=== PATIENT | female | born 1950 | race African-American/Black ===

== ENCOUNTER 2016-11-16 20:30 | Inpatient (IN) | payer MEDICARE, MEDICAID ==
[~2016-11-16] VITALS: Ht 175.3 cm; Wt 60.3 kg
[~2016-11-16 20:30] MED LIST: ADVIL200 M2 ORAL; AMOXICILLIN500 MG ORAL; ATENOLOL100 MG ORAL; CYMBALTA20 MG ORAL; HYDROCODON-ACE1 EAC4 ORAL; IBUPROFEN600 MG ORAL; LOMOTIL TABLET1 EACH ORAL; NEURONTIN100 MG ORAL; Naloxone 1mg/ml 2ml IVP ONE; Naloxone 2 MG in D5W 500ml 498 ML IV SCH; PENICILLIN V P500 MG PO; PERIDEX 0.12% O16 OZ MT; TRAMADOL HCL50 MG ORAL; TRICOR54 MG ORAL; TYLENOL325 MG ORAL; WELLBUTRIN75 MG ORAL
[2016-11-16 21:32] LABS: ABG ALLEN TEST POSITIVE; ABG BASE EXCESS -0.2; ABG PCO2 34.2 mmHg (35.0-45.0)
[2016-11-16 21:56] VITALS: BP 150/98
[2016-11-16 22:11] LABS: MEAN CORPUSCULAR HEMOGLOBIN 32.4 PG (27.0-31.0); MEAN CORPUSCULAR HGB CONC 32.2 G/DL (32.0-36.0); MEAN CORPUSCULAR VOLUME 101 FL (80-99); MEAN PLATELET VOLUME 5.6 FL (6.5-10.1); PLATELET COUNT 253 K/UL (150-450); RED BLOOD COUNT 3.79 M/UL (4.20-5.40); RED CELL DISTRIBUTION WIDTH 13.3 % (11.6-14.8); WHITE BLOOD COUNT 5.1 K/UL (4.8-10.8)
[2016-11-16 22:13] LABS: APPEARANCE,URINE CLEAR; KETONES,URINE NEGATIVE (NEGATIVE); LEUKOCYTE ESTERASE ,URINE 1+ (NEGATIVE); NITRITE,URINE NEGATIVE (NEGATIVE); PH,URINE 7 (4.5-8.0); PROTEIN,URINE 2+ (NEGATIVE); UROBILINOGEN,URINE NORMAL MG/DL (0.0-1.0)
[2016-11-16 22:27] LABS: RBC,URINE 0-2 /HPF (0 - 2)
[2016-11-16 22:28] LABS: SQUAMOUS EPITHELIAL CELL,UR OCCASIONAL /LPF (NONE/OCC); WBC,URINE 0-2 /HPF (0 - 2)
--- NOTE | 2016-11-16 22:29 | Emergency Room Report ---
History of Present Illness General Chief Complaint: Overdose Source: EMS Present Illness HPI The patient was brought in by EMS. She allegedly took excessive amounts of narcotics at the assisted living where she is. She was unresponsive and had a respiratory rate of 6. They gave 2 milligrams of Narcan in the field and she woke up. She was still lethargic. Her vital signs otherwise were stable her Accu-Chek was normal in the field. She has a history of narcotic abuse in the past. She denies suicidal or homicidal ideation. She has been seen in the ED for sciatica, facial pain and tooth pain. Usually she would receive an Rx of tramadol. Apparently she obtains other opiates from the others living with her. All other history unavailable as patient not answering. Allergies: Coded Allergies: SULFA (SULFONAMIDE ANTIBIOTICS) (Verified Allergy, Mild, Hives, 04/20/13) Patient History Limited by: medical condition Past Medical History: see triage record, old chart reviewed Social History: Reports: alcohol use, drug use Social History Narrative [facility] Reviewed Nursing Documentation: PMH: Agreed, PSxH: Agreed Nursing Documentation-PMH Hx Hypertension: Yes Hx Cancer: Yes - ovarian cancer Hx Gastrointestinal Problems: Yes - Gerd DIVITERCULITIS Hx Seizures: Yes Review of Systems All Other Systems: limited Physical Exam Vital Signs Date Time Temp Pulse Resp B/P Pulse Ox O2 Delivery O2 Flow Rate FiO2 11/16/16 20:16 98.4 114 18 145/99 98 11/16/16 21:56 Room Air Sp02 EP Interpretation: reviewed, normal General Appearance: well appearing, no apparent distress, lethargic, thin Head: normocephalic, atraumatic Eyes: bilateral eye PERRL - 3 mm, bilateral eye other ENT: moist mucus membranes Neck: supple Respiratory: chest non-tender, lungs clear, normal breath sounds Cardiovascular #1: normal peripheral pulses, no edema, tachycardia Cardiovascular #2: 2+ radial (L) Gastrointestinal: normal inspection, non tender, no mass, non-distended, abnormal bowel sounds - decreased Musculoskeletal: back normal, normal range of motion, non-tender, no calf tenderness Neurologic: other - lethargic with some choreoform movements Psychiatric: depressed affect Skin: normal inspection, other - cool Medical Decision Making Diagnostic Impression: Primary Impression: Opiate overdose Qualified Codes: T40.604A - Poisoning by unspecified narcotics, undetermined, initial encounter Additional Impressions: Polypharmacy abuse Persistent lethargy ER Course The patient presents after the Narcan for respiratory arrest after narcotic excess. Evaluation needs to be undertaken to make sure she doesn't have non- cardiac pulmonary edema or an ND. She also needs observation. Laboratory will be obtained. The patient is ill and needs observation to make sure she doesn't return to the comatose state. Nacan and narcan drip ordered. Labs significant for + opiates and alcohol. CXR - no CHF. The patient is still lethargic however she does not require further dosing of Narcan at this time. She'll be admitted to the hospital for observation. Patient admitted Dr. Parker. Laboratory Tests Test 11/16/16 20:28 11/16/16 21:31 11/16/16 21:51 11/16/16 22:44 Arterial Blood pH 7.450 (7.350-7.450) Arterial Blood Partial Pressure CO2 34.2 mmHg (35.0-45.0) L Arterial Blood Partial Pressure O2 81.8 mmHg (75.0-100.0) Arterial Blood HCO3 23.2 mmol/L (22.0-26.0) Arterial Blood Oxygen Saturation 95.0 % (92.0-98.0) Arterial Blood Base Excess -0.2 Jono Test Positive White Blood Count 5.1 K/UL (4.8-10.8) Red Blood Count 3.79 M/UL (4.20-5.40) L Hemoglobin 12.3 G/DL (12.0-16.0) Hematocrit 38.2 % (37.0-47.0) Mean Corpuscular Volume 101 FL (80-99) H Mean Corpuscular Hemoglobin 32.4 PG (27.0-31.0) H Mean Corpuscular Hemoglobin Concent 32.2 G/DL (32.0-36.0) Red Cell Distribution Width 13.3 % (11.6-14.8) Platelet Count 253 K/UL (150-450) Mean Platelet Volume 5.6 FL (6.5-10.1) L Neutrophils (%) (Auto) % (45.0-75.0) Lymphocytes (%) (Auto) % (20.0-45.0) Monocytes (%) (Auto) % (1.0-10.0) Eosinophils (%) (Auto) % (0.0-3.0) Basophils (%) (Auto) % (0.0-2.0) Differential Total Cells Counted 100 Neutrophils % (Manual) 26 % (45-75) L Lymphocytes % (Manual) 60 % (20-45) H Monocytes % (Manual) 10 % (1-10) Eosinophils % (Manual) 3 % (0-3) Basophils % (Manual) 1 % (0-2) Band Neutrophils 0 % (0-8) Platelet Estimate Adequate Platelet Morphology Normal Polychromasia 1+ Macrocytosis 2+ Urine Color Pale yellow Urine Appearance Clear Urine pH 7 (4.5-8.0) Urine Specific [place] 1.005 (1.005-1.035) Urine Protein 2+ (NEGATIVE) H Urine Glucose (UA) Negative (NEGATIVE) Urine Ketones Negative (NEGATIVE) Urine Occult Blood Negative (NEGATIVE) Urine Nitrite Negative (NEGATIVE) Urine Bilirubin Negative (NEGATIVE) Urine Urobilinogen Normal MG/DL (0.0-1.0) Urine Leukocyte Esterase 1+ (NEGATIVE) H Urine RBC 0-2 /HPF (0 - 2) Urine WBC 0-2 /HPF (0 - 2) Urine Squamous Epithelial Cells Occasional /LPF Urine Bacteria None /HPF (NONE) Urine Opiates Screen Positive (NEGATIVE) H Urine Barbiturates Screen Negative (NEGATIVE) Phencyclidine (PCP) Screen Negative (NEGATIVE) Urine Amphetamines Screen Negative (NEGATIVE) Urine Benzodiazepines Screen Negative (NEGATIVE) Urine Cocaine Screen Negative (NEGATIVE) Urine Marijuana (THC) Screen Negative (NEGATIVE) Sodium Level 137 mEQ/L (135-145) Potassium Level 4.2 mEQ/L (3.4-4.9) Chloride Level 96 mEQ/L (98-107) L Carbon Dioxide Level 24 mEQ/L (20-30) Anion Gap 17 (5-15) H Blood Urea Nitrogen 12 mg/dL (7-23) Creatinine 0.7 mg/dL (0.5-0.9) Estimate Glomerular Filtration Rate > 60 mL/min (>60) Glucose Level 81 mg/dL (74-106) Calcium Level 8.4 mg/dL (8.6-10.2) L Total Bilirubin < 0.2 mg/dL (0.0-1.2) Aspartate Amino Transferase (AST) 26 U/L (5-40) Alanine Aminotransferase (ALT) 13 U/L (3-33) Alkaline Phosphatase 89 U/L (35-104) Total Creatine Kinase 62 U/L (26-140) Troponin I < 0.30 ng/mL (<=0.30) Total Protein 6.7 g/dL (6.6-8.7) Albumin 3.8 g/dL (3.5-5.2) Globulin 2.9 g/dL Albumin/Globulin Ratio 1.3 (1.0-2.7) Salicylates Level < 1 mg/dL (10-30) L Acetaminophen Level < 10 ug/mL (10-30) L Serum Alcohol 125 mg/dL EKG Diagnostic Results Rate: tachycardiac ST Segments: no acute changes Rhythm Strip Diag. Results Rhythm: no PVC's, no ectopy, other - ST Chest X-Ray Diagnostic Results EP Interpretation: Yes Findings: no consolidation, no effusion, no pneumothorax, other - Nodule R base Number of Views: 1 Last Vital Signs Date Time Temp Pulse Resp B/P Pulse Ox O2 Delivery O2 Flow Rate FiO2 11/17/16 01:52 97.7 94 20 154/107 95 Room Air Status: improved Disposition: ADMITTED INPATIENT Condition: Serious Tucker Bennett M.D. Nov 16, 2016 22:29
[2016-11-16 23:18] LABS: BASOPHILS % (MANUAL) 1 % (0-2); EOSINOPHILS % (MANUAL) 3 % (0-3); LYMPHOCYTES % (MANUAL) 60 % (20-45); NEUTROPHILS % (MANUAL) 26 % (45-75); TOTAL CELLS COUNTED 100
[2016-11-16 23:19] LABS: TROPONIN I < 0.30 ng/mL (<=0.30)
[2016-11-16 23:19] LABS: BAND NEUTROPHILS % (MANUAL) 0 % (0-8); MACROCYTES 2+; PLATELET ESTIMATE ADEQUATE; POLYCHROMASIA 1+
[2016-11-16 23:20] LABS: PLATELET MORPHOLOGY NORMAL
[2016-11-16 23:24] LABS: ACETAMINOPHEN < 10 ug/mL (10-30); ALANINE AMINOTRANSFERASE 13 U/L (3-33); ALBUMIN/GLOBULIN RATIO 1.3 (1.0-2.7); ALCOHOL 125 mg/dL; ANION GAP 17 (5-15); ASPARTATE AMINO TRANSFERASE 26 U/L (5-40); CALCIUM 8.4 mg/dL (8.6-10.2); CARBON DIOXIDE 24 mEQ/L (20-30); CHLORIDE 96 mEQ/L (98-107); CREATININE 0.7 mg/dL (0.5-0.9); GLOMERULAR FILTRATION RATE > 60 mL/min (>60); HEMOLYSIS 77; POTASSIUM 4.2 mEQ/L (3.4-4.9); SODIUM 137 mEQ/L (135-145); TOTAL PROTEIN 6.7 g/dL (6.6-8.7)
[2016-11-16 23:48] VITALS: BP 142/98
[2016-11-17] VITALS (7 sets, daily range): BP systolic 98–154; BP diastolic 49–107
[2016-11-17] MEDS ORDERED: MAGNESIUM OXID400 M1 ORAL (00:54)
[2016-11-17] MEDS ORDERED: LOPRESSOR HCT1 EAC3 ORAL (00:54)
[2016-11-17] MEDS ORDERED: ALLOPURINOL100 M1 ORAL (00:54)
[2016-11-17] MEDS ORDERED: VITAMIN D250000 UNI1 ORAL (00:54)
[2016-11-17] MEDS ORDERED: MULTIVITAMINS1 EAC2 ORAL (00:54)
[2016-11-17] MEDS ORDERED: GABAPENTIN400 MG ORAL (00:54)
[2016-11-17] MEDS ORDERED: FERROUS SULFAT325 MG ORAL (00:54)
[2016-11-17] MEDS ORDERED: COMPAZINE10 MG ORAL (00:54)
[2016-11-17] MEDS ORDERED: PROTONIX40 MG ORAL (00:54)
[2016-11-17] MEDS ORDERED: DULCOLAX10 MG RC (00:54)
[2016-11-17] MEDS ORDERED: QUETIAPINE FUMA50 MG ORAL (00:54)
[2016-11-17] MEDS ORDERED: AZELASTINE137 MCG/0. NS (00:54)
[2016-11-17] MEDS ORDERED: RESTORIL7.5 MG ORAL (00:54)
[2016-11-17] MEDS ORDERED: BUMETANIDE2 MG ORAL (00:54)
[2016-11-17] MEDS ORDERED: LIDODERM700 M1 TOPIC (00:54)
[2016-11-17] MEDS ORDERED: PROCHLORPERAZIN10 MG PO (04:38)
[2016-11-17] MEDS ORDERED: PANTOPRAZOLE SO40 MG ORAL (04:38)
[2016-11-17] MEDS ORDERED: METOPROLOL TART25 MG ORAL (04:38)
[2016-11-17] MEDS ORDERED: GABAPENTIN100 MG ORAL (04:38)
[2016-11-17] MEDS ORDERED: DULOXETINE HCL60 MG PO (04:38)
[2016-11-17] MEDS ORDERED: NEURONTIN400 MG ORAL (04:38)
[2016-11-17] MEDS ORDERED: Prochlorperazine 10mg tab ORAL PRN (08:30)
[2016-11-17 08:55] LABS: BASOPHILS % (AUTO) 1.9 % (0.0-2.0); EOSINOPHILS % (AUTO) 2.2 % (0.0-3.0); LYMPHOCYTES % (AUTO) 32.5 % (20.0-45.0); MEAN CORPUSCULAR HEMOGLOBIN 32.1 PG (27.0-31.0); MEAN CORPUSCULAR HGB CONC 32.5 G/DL (32.0-36.0); MEAN CORPUSCULAR VOLUME 99 FL (80-99); MEAN PLATELET VOLUME 5.9 FL (6.5-10.1); MONOCYTES % (AUTO) 12.2 % (1.0-10.0); NEUTROPHILS % (AUTO) 51.2 % (45.0-75.0); PLATELET COUNT 258 K/UL (150-450); RED BLOOD COUNT 3.82 M/UL (4.20-5.40); RED CELL DISTRIBUTION WIDTH 13.7 % (11.6-14.8); WHITE BLOOD COUNT 5.6 K/UL (4.8-10.8)
[2016-11-17] MEDS ORDERED: Pneumococcal Vaccine 25mcg/0.5ml IM ONE (09:00)
[2016-11-17] MEDS: Allopurinol 100mg Tab ORAL SCH ×2 (09:18→18:22)
[2016-11-17] MEDS: DULoxetine 30mg cap ORAL SCH ×2 (09:18→18:18)
[2016-11-17] MEDS: Thiamine 100mg tab ORAL SCH (09:22)
[2016-11-17] MEDS: Metoprolol 25mg tab ORAL SCH ×2 (09:22→20:28)
[2016-11-17] MEDS: Heparin 5000 units/ml inj SUBQ SCH ×2 (09:23→20:29)
[2016-11-17 09:31] LABS: ALANINE AMINOTRANSFERASE 12 U/L (3-33); ALBUMIN/GLOBULIN RATIO 1.3 (1.0-2.7); ANION GAP 17 (5-15); ASPARTATE AMINO TRANSFERASE 21 U/L (5-40); CALCIUM 9.2 mg/dL (8.6-10.2); CARBON DIOXIDE 23 mEQ/L (20-30); CHLORIDE 101 mEQ/L (98-107); CREATININE 0.7 mg/dL (0.5-0.9); GLOMERULAR FILTRATION RATE > 60 mL/min (>60); HEMOLYSIS 6; MAGNESIUM 1.4 mg/dL (1.7-2.5); PHOSPHORUS 4.8 mg/dL (2.5-4.8); POTASSIUM 3.9 mEQ/L (3.4-4.9); SODIUM 141 mEQ/L (135-145); TOTAL PROTEIN 7.1 g/dL (6.6-8.7)
[2016-11-17] MEDS: Bumetanide 1mg tab ORAL SCH (10:30)
--- NOTE | 2016-11-17 15:21 | Consultation ---
History of Present Illness General Date patient seen: Nov 17, 2016 Chief Complaint: Overdose Present Illness HPI 66 year old female with hx of chronic pain, ovarian cancer, assisted living resident, was brought in by EMS because she was unresponsive and had a respiratory rate of 6. EMS gave her 2 milligrams of Narcan in the field and she woke up. She allegedly took excessive amounts of narcotics at the assisted living. She was still lethargic upon arrival to ED. Her vital signs otherwise were stable her Accu-Chek was normal in the field. She has a history of narcotic abuse in the past. She denies suicidal or homicidal ideation. She has been admitted for narcotic overdose. Allergies: Coded Allergies: SULFA (SULFONAMIDE ANTIBIOTICS) (Verified Allergy, Mild, Hives, 04/20/13) Uncoded Allergies: FISH (Allergy, Severe, Swelling of throat, lips and hives, 11/17/16) Medication History Scheduled Allopurinol* (Allopurinol*), 100 MG ORAL DAILY, (Reported) Amoxicillin* (Amoxil*), 500 MG ORAL EVERY 8 HOURS Atenolol* (Tenormin*), 200 MG ORAL DAILY, (Reported) Bumetanide* (Bumetanide*), 2 MG ORAL DAILY, (Reported) Duloxetine HCl (Duloxetine HCl), 60 MG PO BID, (Reported) Ergocalciferol (Vitamin D2)* (Vitamin D*), 50,000 UNIT ORAL ONCE A WEEK, ( Reported) Fenofibrate (Fenofibrate), MG ORAL DAILY, (Reported) Ferrous Sulfate* (Ferrous Sulfate*), 325 MG ORAL TWICE A DAY, (Reported) Gabapentin* (Gabapentin*), 100 MG ORAL THREE TIMES A DAY, (Reported) Gabapentin* (Neurontin*), 400 MG ORAL THREE TIMES A DAY, (Reported) Ibuprofen* (Advil*), Unknown Dose ORAL Q6H, (Reported) Ibuprofen* (Motrin*), 600 MG ORAL THREE TIMES A DAY Magnesium Oxide (Magnesium Oxide), 400 MG ORAL DAILY, (Reported) Metoprolol Tartrate* (Metoprolol Tartrate*), 25 MG ORAL EVERY 12 HOURS, ( Reported) Multivitamins* (Multivitamins*), 1 TAB ORAL DAILY, (Reported) Pantoprazole* (Pantoprazole*), 40 MG ORAL EVERY 12 HOURS, (Reported) Penicillin V Potassium* (Penvk*), 500 MG PO Q6H Quetiapine Fumarate* (Quetiapine Fumarate*), 25 MG ORAL DAILY, (Reported) Temazepam* (Restoril*), 7.5 MG ORAL BEDTIME, (Reported) Tramadol Hcl* (Ultram*), 50 MG ORAL Q6H Scheduled PRN Acetaminophen (Tylenol), Unknown Dose ORAL Q6H PRN for For Pain, (Reported) Prochlorperazine Maleate (Prochlorperazine Maleate), 10 MG PO BID PRN for Nausea & Vomiting, (Reported) Tramadol Hcl* (Ultram*), 50 MG ORAL Q6H PRN for For Pain Tramadol Hcl* (Ultram*), 50 MG ORAL Q6H PRN for For Pain Tramadol Hcl* (Ultram*), 50 MG ORAL Q6H PRN for For Pain Miscellaneous Medications Azelastine Hcl (Azelastine Hcl), 137 MCG NS, (Reported) Bisacodyl (Dulcolax), 10 MG RC, (Reported) Lidocaine (Lidoderm), 1 PATCH TOPIC, (Reported) Discontinued Medications Duloxetine (Cymbalta), Unknown Dose ORAL DAILY, (Reported) Discontinued Reason: Prescription changed Metoprolol/Hydrochlorothiazide (Lopressor Hct 50-25 Tablet), 1 TAB ORAL DAILY, ( Reported) Discontinued Reason: Prescription changed Prochlorperazine (Compazine*), 10 MG ORAL Q6H PRN for Nausea & Vomiting, ( Reported) Discontinued Reason: Prescription changed Patient History Healthcare decision maker pt alert Resuscitation status Full Code Advanced Directive on File Past Medical/Surgical History Past Medical/Surgical History: (1) opiate dependence (2) Drug-seeking behavior (3) Chronic pain Review of Systems All Other Systems: negative except mentioned in HPI Physical Exam General Appearance: WD/WN Lines, tubes and drains: peripheral HEENT: normocephalic, atraumatic Neck: non-tender, supple Respiratory/Chest: chest wall non-tender, lungs clear Cardiovascular/Chest: normal peripheral pulses, regular rhythm Abdomen: normal bowel sounds, non tender Extremities: normal range of motion, non-tender Skin Exam: normal pigmentation Last 24 Hour Vital Signs Date Time Temp Pulse Resp B/P Pulse Ox O2 Delivery O2 Flow Rate FiO2 11/17/16 13:50 96.5 11/17/16 13:50 96.5 11/17/16 11:38 96.5 97 18 151/96 100 Room Air 11/17/16 09:22 111 145/93 11/17/16 07:58 98.1 111 18 145/93 100 Room Air 11/17/16 07:54 106 11/17/16 04:30 98.1 103 20 98/49 96 Room Air 11/17/16 04:00 105 11/17/16 01:52 97.7 94 20 154/107 95 Room Air 11/17/16 01:48 98.3 100 23 150/96 99 Room Air 11/17/16 01:03 100 23 150/96 99 Room Air 11/16/16 23:48 98.3 102 18 142/98 97 Room Air 11/16/16 21:56 98.6 105 17 150/98 98 Room Air 11/16/16 21:55 105 17 11/16/16 20:16 98.4 114 18 145/99 98 Intake and Output 11/16/16 11/17/16 19:00 07:00 Intake Total 1000 ml Output Total 1125 ml Balance -125 ml Intake IV Total 1000 ml Output Urine Total 1125 ml # Voids 1 Laboratory Tests Test 11/16/16 20:28 11/16/16 21:31 11/16/16 21:51 11/16/16 22:44 Arterial Blood pH 7.450 (7.350-7.450) Arterial Blood Partial Pressure CO2 34.2 mmHg (35.0-45.0) L Arterial Blood Partial Pressure O2 81.8 mmHg (75.0-100.0) Arterial Blood HCO3 23.2 mmol/L (22.0-26.0) Arterial Blood Oxygen Saturation 95.0 % (92.0-98.0) Arterial Blood Base Excess -0.2 Jono Test Positive White Blood Count 5.1 K/UL (4.8-10.8) Red Blood Count 3.79 M/UL (4.20-5.40) L Hemoglobin 12.3 G/DL (12.0-16.0) Hematocrit 38.2 % (37.0-47.0) Mean Corpuscular Volume 101 FL (80-99) H Mean Corpuscular Hemoglobin 32.4 PG (27.0-31.0) H Mean Corpuscular Hemoglobin Concent 32.2 G/DL (32.0-36.0) Red Cell Distribution Width 13.3 % (11.6-14.8) Platelet Count 253 K/UL (150-450) Mean Platelet Volume 5.6 FL (6.5-10.1) L Neutrophils (%) (Auto) % (45.0-75.0) Lymphocytes (%) (Auto) % (20.0-45.0) Monocytes (%) (Auto) % (1.0-10.0) Eosinophils (%) (Auto) % (0.0-3.0) Basophils (%) (Auto) % (0.0-2.0) Differential Total Cells Counted 100 Neutrophils % (Manual) 26 % (45-75) L Lymphocytes % (Manual) 60 % (20-45) H Monocytes % (Manual) 10 % (1-10) Eosinophils % (Manual) 3 % (0-3) Basophils % (Manual) 1 % (0-2) Band Neutrophils 0 % (0-8) Platelet Estimate Adequate Platelet Morphology Normal Polychromasia 1+ Macrocytosis 2+ Urine Color Pale yellow Urine Appearance Clear Urine pH 7 (4.5-8.0) Urine Specific [place] 1.005 (1.005-1.035) Urine Protein 2+ (NEGATIVE) H Urine Glucose (UA) Negative (NEGATIVE) Urine Ketones Negative (NEGATIVE) Urine Occult Blood Negative (NEGATIVE) Urine Nitrite Negative (NEGATIVE) Urine Bilirubin Negative (NEGATIVE) Urine Urobilinogen Normal MG/DL (0.0-1.0) Urine Leukocyte Esterase 1+ (NEGATIVE) H Urine RBC 0-2 /HPF (0 - 2) Urine WBC 0-2 /HPF (0 - 2) Urine Squamous Epithelial Cells Occasional /LPF Urine Bacteria None /HPF (NONE) Urine Opiates Screen Positive (NEGATIVE) H Urine Barbiturates Screen Negative (NEGATIVE) Phencyclidine (PCP) Screen Negative (NEGATIVE) Urine Amphetamines Screen Negative (NEGATIVE) Urine Benzodiazepines Screen Negative (NEGATIVE) Urine Cocaine Screen Negative (NEGATIVE) Urine Marijuana (THC) Screen Negative (NEGATIVE) Sodium Level 137 mEQ/L (135-145) Potassium Level 4.2 mEQ/L (3.4-4.9) Chloride Level 96 mEQ/L (98-107) L Carbon Dioxide Level 24 mEQ/L (20-30) Anion Gap 17 (5-15) H Blood Urea Nitrogen 12 mg/dL (7-23) Creatinine 0.7 mg/dL (0.5-0.9) Estimat Glomerular Filtration Rate > 60 mL/min (>60) Glucose Level 81 mg/dL (74-106) Calcium Level 8.4 mg/dL (8.6-10.2) L Total Bilirubin < 0.2 mg/dL (0.0-1.2) Aspartate Amino Transf (AST/SGOT) 26 U/L (5-40) Alanine Aminotransferase (ALT/SGPT) 13 U/L (3-33) Alkaline Phosphatase 89 U/L (35-104) Total Creatine Kinase 62 U/L (26-140) Troponin I < 0.30 ng/mL (<=0.30) Total Protein 6.7 g/dL (6.6-8.7) Albumin 3.8 g/dL (3.5-5.2) Globulin 2.9 g/dL Albumin/Globulin Ratio 1.3 (1.0-2.7) Salicylates Level < 1 mg/dL (10-30) L Acetaminophen Level < 10 ug/mL (10-30) L Serum Alcohol 125 mg/dL Test 11/17/16 08:40 White Blood Count 5.6 K/UL (4.8-10.8) Red Blood Count 3.82 M/UL (4.20-5.40) L Hemoglobin 12.2 G/DL (12.0-16.0) Hematocrit 37.6 % (37.0-47.0) Mean Corpuscular Volume 99 FL (80-99) Mean Corpuscular Hemoglobin 32.1 PG (27.0-31.0) H Mean Corpuscular Hemoglobin Concent 32.5 G/DL (32.0-36.0) Red Cell Distribution Width 13.7 % (11.6-14.8) Platelet Count 258 K/UL (150-450) Mean Platelet Volume 5.9 FL (6.5-10.1) L Neutrophils (%) (Auto) 51.2 % (45.0-75.0) Lymphocytes (%) (Auto) 32.5 % (20.0-45.0) Monocytes (%) (Auto) 12.2 % (1.0-10.0) H Eosinophils (%) (Auto) 2.2 % (0.0-3.0) Basophils (%) (Auto) 1.9 % (0.0-2.0) Sodium Level 141 mEQ/L (135-145) Potassium Level 3.9 mEQ/L (3.4-4.9) Chloride Level 101 mEQ/L (98-107) Carbon Dioxide Level 23 mEQ/L (20-30) Anion Gap 17 (5-15) H Blood Urea Nitrogen 10 mg/dL (7-23) Creatinine 0.7 mg/dL (0.5-0.9) Estimat Glomerular Filtration Rate > 60 mL/min (>60) Glucose Level 82 mg/dL (74-106) Calcium Level 9.2 mg/dL (8.6-10.2) Phosphorus Level 4.8 mg/dL (2.5-4.8) Magnesium Level 1.4 mg/dL (1.7-2.5) L Total Bilirubin 0.5 mg/dL (0.0-1.2) Aspartate Amino Transf (AST/SGOT) 21 U/L (5-40) Alanine Aminotransferase (ALT/SGPT) 12 U/L (3-33) Alkaline Phosphatase 98 U/L (35-104) Total Protein 7.1 g/dL (6.6-8.7) Albumin 4.1 g/dL (3.5-5.2) Globulin 3.0 g/dL Albumin/Globulin Ratio 1.3 (1.0-2.7) Height (Feet): 5 Height (Inches): 9.00 Weight (Pounds): 133 Medications Current Medications Medications (Trade) Dose Ordered Sig/Luz Route PRN Reason Start Time Stop Time Status Last Admin Dose Admin Allopurinol (Zyloprim) 100 mg BID ORAL 11/17/16 09:00 12/17/16 08:59 11/17/16 09:18 Bisacodyl (Dulcolax) 10 mg DAILYPRN PRN RECTAL Constipation 11/17/16 07:45 12/17/16 07:44 Bumetanide (Bumex) 2 mg DAILY ORAL 11/17/16 10:00 12/17/16 09:59 11/17/16 10:30 Dextrose (Dextrose 50%) STAT PRN IV Hypoglycemia 11/17/16 07:45 12/17/16 07:44 Dextrose/ Electrolytes (D5 0.45%NS W/ KCl 20mEq) 1,000 ml @ 75 mls/hr [id number] IV 11/17/16 12:00 12/17/16 11:59 Duloxetine HCl (Cymbalta) 60 mg BID ORAL 11/17/16 09:00 12/17/16 08:59 11/17/16 09:18 Ferrous Sulfate (Feosol) 325 mg BID ORAL 11/17/16 09:00 12/17/16 08:59 11/17/16 09:21 Folic Acid (Folate) 1 mg DAILY ORAL 11/17/16 09:00 12/17/16 08:59 11/17/16 09:22 Gabapentin (Neurontin) 400 mg THREE TIMES A DAY ORAL 11/17/16 09:00 12/17/16 08:59 11/17/16 12:51 Gabapentin 100 mg 100 mg THREE TIMES A DAY ORAL 11/17/16 09:00 12/17/16 08:59 11/17/16 12:51 Heparin Sodium (Porcine) (Heparin 5000 units/ml) 5,000 units EVERY 12 HOURS SUBQ 11/17/16 09:00 12/17/16 08:59 11/17/16 09:23 Lidocaine (Lidoderm 5% PATCH) 1 patch DAILY PRN TDERMAL For Pain 11/17/16 07:45 12/17/16 07:44 Metoprolol Tartrate (Lopressor) 25 mg Q12HR ORAL 11/17/16 09:00 12/17/16 08:59 11/17/16 09:22 Pantoprazole (Protonix) 40 mg EVERY 12 HOURS ORAL 11/17/16 09:00 12/17/16 08:59 11/17/16 09:21 Prochlorperazine (Compazine) 10 mg BID PRN ORAL Nausea & Vomiting 11/17/16 08:30 12/17/16 08:29 Quetiapine Fumarate (SEROquel) 25 mg QHS ORAL 11/17/16 21:00 12/17/16 20:59 Temazepam (Restoril) 7.5 mg QHS PRN ORAL Insomnia 11/17/16 08:00 11/24/16 07:44 Thiamine HCl (Vitamin B1) 100 mg DAILY ORAL 11/17/16 09:00 12/17/16 08:59 11/17/16 09:22 Assessment/Plan Problem List: (1) Acute hypercapnic respiratory failure ICD Codes: J96.02 - Acute respiratory failure with hypercapnia SNOMED: 458665508 (2) Drug overdose ICD Codes: T50.901A - Poisoning by unspecified drugs, medicaments and biological substances, accidental (unintentional), initial encounter SNOMED: 85924452 (3) Chronic pain disorder ICD Codes: G89.4 - Chronic pain syndrome SNOMED: 648929851 Assessment/Plan Narcan prn, pain consult psych evaluation will need medical social worker for placement GÓMEZ VALDIVIA Nov 17, 2016 15:21
--- NOTE | 2016-11-17 15:42 | History & Physical ---
History and Physical History & Physicial Kingsley Parker MD Nov 17, 2016 15:42
[2016-11-17] MEDS: D5 1/2NS w/KCl 20mEq 1,000 ML IV SCH (15:47)
--- NOTE | 2016-11-17 17:59 | Cardiology Report ---
APPROVED REPORT EKG Measurement Heart [id number] Sinus tachycardia Otherwise normal ECG
--- NOTE | 2016-11-17 22:27 | History and Physical Report ---
DATE OF ADMISSION: 11/17/2016 CHIEF COMPLAINT: Altered mental status. HISTORY OF PRESENT ILLNESS: This is a 66-year-old female with a past medical history significant for ovarian cancer status post hysterectomy diagnosed in 2003, history of hypertension, dyslipidemia, severe osteoarthritis with effusion in the right knee, and endometriosis, who has presented to the emergency room via EMS after she was noted to be altered at the nursing facility, unresponsive, and a respiratory rate of 6. A 2 g of Narcan was given to the patient at the nursing facility on the field via EMS and she was initially lethargic and she has started to become more arousable. It was presumed that the patient was taking too much of pain medication associated with wine and subsequently becomes more respiratory distressed. The patient denies any suicidal or homicidal ideations. Denies any prior history of suicide and she has been in the ER for the facial pain, tooth pain, sciatica, knee pain, and was prescribed tramadol and shortly after initial evaluation in the emergency room, the patient was admitted to the hospital with altered mental status with a toxic metabolic encephalopathy due to the overdose on the medication as well as polypharmacy abuse. PAST MEDICAL HISTORY/PAST SURGICAL HISTORY: As above. History of ovarian cancer status post hysterectomy in 2003, dyslipidemia, hypertension, diverticulitis, history of gastroesophageal reflux disease, endometriosis, osteoarthritis, and right knee effusion. ALLERGIES: To sulfa. MEDICATIONS: Medications at home is significant for acetaminophen, allopurinol, amoxicillin, atenolol, azelastine, docusate, bumetanide, Cymbalta, vitamin D, TriCor, iron sulfate, of iron, gabapentin, ibuprofen, lidocaine, magnesium oxide, metoprolol, multivitamin, Protonix, prochlorperazine, Seroquel, Restoril, and tramadol. SOCIAL HISTORY: The patient is living at a [facility]. She currently smokes one cigarette. She states that she is trying to cut down. She is a 20 years pack smoker. She drinks a glass of wine at night according to her, but sometimes more. Denies any substance abuse. FAMILY HISTORY: Father had a history of Alzheimer and mother had congestive heart failure and from the consequence of congestive heart failure. REVIEW OF SYSTEMS: Mostly as above. Denies any dysuria or frequency. Denies any hemoptysis or hematochezia. Complained about weakness and knee pain. She stated that because of the range of pain, became progressively worse and denies any loss of consciousness. Denies any suicidal or homicidal ideation. Denies any double vision, however, she said that she cannot remember what happened to her and how she got to the hospital. PHYSICAL EXAMINATION: VITAL SIGNS: On admission from the ER is significant for temperature 98.4 degrees, pulse of 114, respiration 18, and blood pressure 145/99. GENERAL: The patient is awake, responsive, and in no acute distress at this time. HEENT: Head and neck examination, pupils are reactive to light. Extraocular movements intact. NECK: Supple. No JVD. LUNGS: Good air entry. No wheezing or rales. HEART: S1 and S2. Regular rhythm. No gallops. ABDOMEN: Soft, nondistended, and nontender. Positive bowel sounds. EXTREMITIES: No cyanosis, clubbing, or edema. Right knee has mild effusion in the joint and tender to touch. EXTREMITIES: No cyanosis, clubbing, or edema. NEUROLOGIC: Cranial nerves II through XII are grossly intact. Moves all four extremities. Gait is unsteady. PSYCHIATRIC: Mood is depressed. Affect is intact. GENITOURINARY: The patient has Andrade catheter. LABORATORY DATA: On admission from the ER, WBC of 5.1, hemoglobin 12, hematocrit 38, and platelets is 253,000. ABG on the room air, pH of 7.4, pCO2 of 34, pO2 of 81, and saturating 95%. The patient's sodium 137, potassium 4.2, chloride 96, bicarbonate 24, BUN 12, creatinine 0.7, and glucose is 81. First troponin less than 0.30. Magnesium is 1.4. The patient's urine drug screen is positive for opioids and otherwise are negative for everything else. Alcohol level is 125 and acetaminophen level less than 10 and salicylate level is less than 1. Urinalysis, +2 protein, otherwise negative and +1 leukocytes. ASSESSMENT: 1. Altered mental status with a toxic metabolic encephalopathy possibly due to the medication use in conjunction with the alcohol abuse. 2. Hypomagnesemia. 3. Alcohol misuse and abuse. 4. History of hypertension. 5. Dyslipidemia. 6. History of ovarian cancer, status post hysterectomy in 2003. 7. Endometriosis. 8. Osteoarthritis of the knees. 9. Proteinuria. PLAN: Admit the patient to telemetry. We will consider to discontinue the Andrade catheter. We will follow up with the laboratory and intravenous hydration. Discussed the case with Dr. Hawkins, Pulmonary Critical Care and Dr. Butcher from Psychiatry. We will monitor laboratory closely. We will review all the home medication. We have stopped all the sedating medication due to the medicine and will follow up with the PT and OT evaluation. DVT prophylaxis with heparin subcutaneous and Code status is Full Code. Kingsley Parker M.D. DR: GAGANDEEP JOB#: [id number] CC:
[2016-11-18 00:10] VITALS: BP 143/98
[2016-11-18] MEDS: D5 1/2NS w/KCl 20mEq 1,000 ML IV SCH ×2 (02:38→14:20)
[2016-11-18 04:11] VITALS: BP 147/107
[2016-11-18 08:00] VITALS: BP 135/87
[2016-11-18 08:14] LABS: ANION GAP 15 (5-15); CALCIUM 9.8 mg/dL (8.6-10.2); CARBON DIOXIDE 25 mEQ/L (20-30); CHLORIDE 96 mEQ/L (98-107); CREATININE 0.7 mg/dL (0.5-0.9); GLOMERULAR FILTRATION RATE > 60 mL/min (>60); HEMOLYSIS 6; MAGNESIUM 1.6 mg/dL (1.7-2.5); POTASSIUM 3.3 mEQ/L (3.4-4.9); SODIUM 136 mEQ/L (135-145)
[2016-11-18] MEDS: Metoprolol 25mg tab ORAL SCH ×2 (09:13→21:51)
[2016-11-18] MEDS: Bumetanide 1mg tab ORAL SCH (09:13)
[2016-11-18] MEDS: Thiamine 100mg tab ORAL SCH (09:14)
[2016-11-18] MEDS: DULoxetine 30mg cap ORAL SCH ×2 (09:14→17:55)
[2016-11-18] MEDS: Allopurinol 100mg Tab ORAL SCH ×2 (09:14→17:55)
[2016-11-18] MEDS: Heparin 5000 units/ml inj SUBQ SCH ×2 (09:15→21:54)
[2016-11-18 12:00] VITALS: BP 128/90
--- NOTE | 2016-11-18 13:35 | Internal Med Progress Note ---
Subjective Date of Service: Nov 18, 2016 Physician Name Drake Schilling Attending Physician Kingsley Parker MD Current Medications Medications (Trade) Dose Ordered Sig/Luz Route PRN Reason Start Time Stop Time Status Last Admin Dose Admin Allopurinol (Zyloprim) 100 mg BID ORAL 11/17/16 09:00 12/17/16 08:59 11/18/16 09:14 Bisacodyl (Dulcolax) 10 mg DAILYPRN PRN RECTAL Constipation 11/17/16 07:45 12/17/16 07:44 Bumetanide (Bumex) 2 mg DAILY ORAL 11/17/16 10:00 12/17/16 09:59 11/18/16 09:13 Dextrose (Dextrose 50%) STAT PRN IV Hypoglycemia 11/17/16 07:45 12/17/16 07:44 Dextrose/ Electrolytes (D5 0.45%NS W/ KCl 20mEq) 1,000 ml @ 75 mls/hr [id number] IV 11/17/16 12:00 12/17/16 11:59 11/18/16 02:38 Duloxetine HCl (Cymbalta) 60 mg BID ORAL 11/17/16 09:00 12/17/16 08:59 11/18/16 09:14 Ferrous Sulfate (Feosol) 325 mg BID ORAL 11/17/16 09:00 12/17/16 08:59 11/18/16 09:14 Folic Acid (Folate) 1 mg DAILY ORAL 11/17/16 09:00 12/17/16 08:59 11/18/16 09:14 Gabapentin (Neurontin) 400 mg THREE TIMES A DAY ORAL 11/17/16 09:00 12/17/16 08:59 11/18/16 12:22 Gabapentin 100 mg 100 mg THREE TIMES A DAY ORAL 11/17/16 09:00 12/17/16 08:59 11/18/16 12:22 Heparin Sodium (Porcine) (Heparin 5000 units/ml) 5,000 units EVERY 12 HOURS SUBQ 11/17/16 09:00 12/17/16 08:59 11/18/16 09:15 Lidocaine (Lidoderm 5% PATCH) 1 patch DAILY PRN TDERMAL For Pain 11/17/16 07:45 12/17/16 07:44 Metoprolol Tartrate (Lopressor) 25 mg Q12HR ORAL 11/17/16 09:00 12/17/16 08:59 11/18/16 09:13 Pantoprazole (Protonix) 40 mg EVERY 12 HOURS ORAL 11/17/16 09:00 12/17/16 08:59 11/18/16 09:13 Prochlorperazine (Compazine) 10 mg BID PRN ORAL Nausea & Vomiting 11/17/16 08:30 12/17/16 08:29 Quetiapine Fumarate (SEROquel) 25 mg QHS ORAL 11/17/16 21:00 12/17/16 20:59 11/17/16 20:27 Temazepam (Restoril) 7.5 mg QHS PRN ORAL Insomnia 11/17/16 08:00 11/24/16 07:44 Thiamine HCl (Vitamin B1) 100 mg DAILY ORAL 11/17/16 09:00 12/17/16 08:59 11/18/16 09:14 Allergies: Coded Allergies: SULFA (SULFONAMIDE ANTIBIOTICS) (Verified Allergy, Mild, Hives, 04/20/13) Uncoded Allergies: FISH (Allergy, Severe, Swelling of throat, lips and hives, 11/17/16) ROS Limited/Unobtainable: No Constitutional: Reports: no symptoms HEENT: Reports: no symptoms Cardiovascular: Reports: no symptoms Respiratory: Reports: no symptoms Gastrointestinal/Abdominal: Reports: no symptoms Genitourinary: Reports: no symptoms Neurologic/Psychiatric: Reports: no symptoms Subjective 66 YO F admitted with decreased respiratory rate. Cover for Int Krish-Dr Parker. Await psychiatry consult. Objective Last Vital Signs Date Time Temp Pulse Resp B/P Pulse Ox O2 Delivery O2 Flow Rate FiO2 11/18/16 09:13 111 136/87 11/18/16 08:00 97.5 20 98 Room Air General Appearance: WD/WN, no apparent distress, alert EENT: PERRL/EOMI, normal ENT inspection Neck: non-tender, normal alignment, supple Cardiovascular: normal peripheral pulses, normal rate, regular rhythm, no gallop/murmur, no JVD Respiratory/Chest: chest wall non-tender, lungs clear, normal breath sounds, no respiratory distress, no accessory muscle use Abdomen: normal bowel sounds, non tender, soft, no organomegaly, no mass Extremities: normal range of motion 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 normal, no motor/sensory deficits Skin: normal pigmentation, warm/dry Laboratory Tests Test 11/18/16 06:55 Sodium Level 136 mEQ/L (135-145) Potassium Level 3.3 mEQ/L (3.4-4.9) L Chloride Level 96 mEQ/L (98-107) L Carbon Dioxide Level 25 mEQ/L (20-30) Anion Gap 15 (5-15) Blood Urea Nitrogen 8 mg/dL (7-23) Creatinine 0.7 mg/dL (0.5-0.9) Estimat Glomerular Filtration Rate > 60 mL/min (>60) Glucose Level 135 mg/dL (74-106) H Calcium Level 9.8 mg/dL (8.6-10.2) Magnesium Level 1.6 mg/dL (1.7-2.5) L Microbiology Date/Time Source Procedure Growth Status 11/17/16 04:00 Nasal Nares Right MRSA Culture - Final NO METHICILLIN RESISTANT STAPH AUREUS... Complete Intake and Output 11/17/16 11/18/16 19:00 07:00 Intake Total 425 ml 1140 ml Output Total 2250 ml Balance -1825 ml 1140 ml Intake Oral 240 ml IV Total 425 ml 900 ml Output Urine Total 2250 ml # Voids 1 Assessment/Plan Problem List: (1) HTN (hypertension) Assessment & Plan: Cont lopressor. (2) Hypercholesteremia (3) Osteoarthritis of right knee (4) Ovarian cancer in remission (5) Metabolic encephalopathy (6) Opiate overdose Assessment & Plan: S/P narcan (7) Depression Assessment & Plan: await psychiatry eval. Cont cymbalta and seroquel Status: DRAKE Aleman Nov 18, 2016 13:35
[2016-11-18 16:00] VITALS: BP 132/91
[2016-11-18] MEDS ORDERED: NS 275ml ONE (16:06)
[2016-11-18] MEDS ORDERED: Tubing IV Secondary IV ONE (16:06)
[2016-11-18 20:00] VITALS: BP 136/87
[2016-11-19] VITALS: BP 109/60
[2016-11-19] MEDS: D5 1/2NS w/KCl 20mEq 1,000 ML IV SCH ×2 (03:35→17:50)
[2016-11-19 04:00] VITALS: BP 125/96
[2016-11-19 08:00] VITALS: BP 137/94
[2016-11-19 08:12] LABS: BASOPHILS % (AUTO) 1.1 % (0.0-2.0); EOSINOPHILS % (AUTO) 2.3 % (0.0-3.0); LYMPHOCYTES % (AUTO) 39.5 % (20.0-45.0); MEAN CORPUSCULAR HEMOGLOBIN 31.8 PG (27.0-31.0); MEAN CORPUSCULAR HGB CONC 30.9 G/DL (32.0-36.0); MEAN CORPUSCULAR VOLUME 103 FL (80-99); MONOCYTES % (AUTO) 9.9 % (1.0-10.0); NEUTROPHILS % (AUTO) 47.2 % (45.0-75.0); PLATELET COUNT 246 K/UL (150-450); RED BLOOD COUNT 3.67 M/UL (4.20-5.40); RED CELL DISTRIBUTION WIDTH 13.2 % (11.6-14.8); WHITE BLOOD COUNT 6.2 K/UL (4.8-10.8)
[2016-11-19 08:43] LABS: ANION GAP 17 (5-15); CALCIUM 9.7 mg/dL (8.6-10.2); CARBON DIOXIDE 21 mEQ/L (20-30); CHLORIDE 98 mEQ/L (98-107); CREATININE 0.6 mg/dL (0.5-0.9); GLOMERULAR FILTRATION RATE > 60 mL/min (>60); HEMOLYSIS 4; POTASSIUM 4.4 mEQ/L (3.4-4.9); SODIUM 136 mEQ/L (135-145)
[2016-11-19] MEDS: Thiamine 100mg tab ORAL SCH (09:47)
[2016-11-19] MEDS: Allopurinol 100mg Tab ORAL SCH ×2 (09:47→17:51)
[2016-11-19] MEDS: Metoprolol 25mg tab ORAL SCH ×2 (09:48→20:27)
[2016-11-19] MEDS: Bumetanide 1mg tab ORAL SCH (09:49)
[2016-11-19] MEDS: DULoxetine 30mg cap ORAL SCH ×2 (09:49→17:51)
[2016-11-19] MEDS: Heparin 5000 units/ml inj SUBQ SCH ×2 (09:53→20:29)
[2016-11-19 12:00] VITALS: BP 147/94
[2016-11-19 16:00] VITALS: BP 121/90
--- NOTE | 2016-11-19 16:32 | Internal Med Progress Note ---
Subjective Date of Service: Nov 19, 2016 Physician Name Julito Casarez Attending Physician Kingsley Parker MD Current Medications Medications (Trade) Dose Ordered Sig/Luz Route PRN Reason Start Time Stop Time Status Last Admin Dose Admin Allopurinol (Zyloprim) 100 mg BID ORAL 11/17/16 09:00 12/17/16 08:59 11/19/16 09:47 Bisacodyl (Dulcolax) 10 mg DAILYPRN PRN RECTAL Constipation 11/17/16 07:45 12/17/16 07:44 Bumetanide (Bumex) 2 mg DAILY ORAL 11/17/16 10:00 12/17/16 09:59 11/19/16 09:49 Dextrose (Dextrose 50%) STAT PRN IV Hypoglycemia 11/17/16 07:45 12/17/16 07:44 Dextrose/ Electrolytes (D5 0.45%NS W/ KCl 20mEq) 1,000 ml @ 75 mls/hr [id number] IV 11/17/16 12:00 12/17/16 11:59 11/19/16 03:35 Duloxetine HCl (Cymbalta) 60 mg BID ORAL 11/17/16 09:00 12/17/16 08:59 11/19/16 09:49 Ferrous Sulfate (Feosol) 325 mg BID ORAL 11/17/16 09:00 12/17/16 08:59 11/19/16 09:48 Folic Acid (Folate) 1 mg DAILY ORAL 11/17/16 09:00 12/17/16 08:59 11/19/16 09:49 Gabapentin (Neurontin) 400 mg THREE TIMES A DAY ORAL 11/17/16 09:00 12/17/16 08:59 11/19/16 11:49 Gabapentin 100 mg 100 mg THREE TIMES A DAY ORAL 11/17/16 09:00 12/17/16 08:59 11/19/16 11:50 Heparin Sodium (Porcine) (Heparin 5000 units/ml) 5,000 units EVERY 12 HOURS SUBQ 11/17/16 09:00 12/17/16 08:59 11/19/16 09:53 Lidocaine (Lidoderm 5% PATCH) 1 patch DAILY PRN TDERMAL For Pain 11/17/16 07:45 12/17/16 07:44 Metoprolol Tartrate (Lopressor) 25 mg Q12HR ORAL 11/17/16 09:00 12/17/16 08:59 11/19/16 09:48 Pantoprazole (Protonix) 40 mg EVERY 12 HOURS ORAL 11/17/16 09:00 12/17/16 08:59 11/19/16 09:47 Prochlorperazine (Compazine) 10 mg BID PRN ORAL Nausea & Vomiting 11/17/16 08:30 12/17/16 08:29 Quetiapine Fumarate (SEROquel) 25 mg QHS ORAL 11/17/16 21:00 12/17/16 20:59 11/18/16 21:51 Temazepam (Restoril) 7.5 mg QHS PRN ORAL Insomnia 11/17/16 08:00 11/24/16 07:44 11/18/16 22:11 Thiamine HCl (Vitamin B1) 100 mg DAILY ORAL 11/17/16 09:00 12/17/16 08:59 11/19/16 09:47 Allergies: Coded Allergies: SULFA (SULFONAMIDE ANTIBIOTICS) (Verified Allergy, Mild, Hives, 04/20/13) Uncoded Allergies: FISH (Allergy, Severe, Swelling of throat, lips and hives, 11/17/16) ROS Limited/Unobtainable: No Constitutional: Reports: no symptoms HEENT: Reports: no symptoms Cardiovascular: Reports: no symptoms Respiratory: Reports: no symptoms Gastrointestinal/Abdominal: Reports: no symptoms Genitourinary: Reports: no symptoms Neurologic/Psychiatric: Reports: no symptoms Subjective 66 YO F admitted with decreased respiratory rate. Cover for Int Med-Dr Parker. Await psychiatry consult. Objective Last Vital Signs Date Time Temp Pulse Resp B/P Pulse Ox O2 Delivery O2 Flow Rate FiO2 11/19/16 16:00 97.9 110 20 121/90 100 Room Air 11/19/16 04:00 90 Laboratory Tests Test 11/19/16 06:55 White Blood Count 6.2 K/UL (4.8-10.8) Red Blood Count 3.67 M/UL (4.20-5.40) L Hemoglobin 11.7 G/DL (12.0-16.0) L Hematocrit 37.9 % (37.0-47.0) Mean Corpuscular Volume 103 FL (80-99) H Mean Corpuscular Hemoglobin 31.8 PG (27.0-31.0) H Mean Corpuscular Hemoglobin Concent 30.9 G/DL (32.0-36.0) L Red Cell Distribution Width 13.2 % (11.6-14.8) Platelet Count 246 K/UL (150-450) Mean Platelet Volume 6.0 FL (6.5-10.1) L Neutrophils (%) (Auto) 47.2 % (45.0-75.0) Lymphocytes (%) (Auto) 39.5 % (20.0-45.0) Monocytes (%) (Auto) 9.9 % (1.0-10.0) Eosinophils (%) (Auto) 2.3 % (0.0-3.0) Basophils (%) (Auto) 1.1 % (0.0-2.0) Sodium Level 136 mEQ/L (135-145) Potassium Level 4.4 mEQ/L (3.4-4.9) Chloride Level 98 mEQ/L (98-107) Carbon Dioxide Level 21 mEQ/L (20-30) Anion Gap 17 (5-15) H Blood Urea Nitrogen 9 mg/dL (7-23) Creatinine 0.6 mg/dL (0.5-0.9) Estimat Glomerular Filtration Rate > 60 mL/min (>60) Glucose Level 106 mg/dL (74-106) Calcium Level 9.7 mg/dL (8.6-10.2) Microbiology Date/Time Source Procedure Growth Status 11/17/16 04:00 Nasal Nares Right MRSA Culture - Final NO METHICILLIN RESISTANT STAPH AUREUS... Complete 11/17/16 04:00 Rectal Mucosa VRE Culture - Final NO VANCOMYCIN RESISTANT ENTEROCOCCUS ... Complete Intake and Output 11/18/16 11/19/16 19:00 07:00 Intake Total 1095 ml 1205 ml Balance 1095 ml 1205 ml Intake Oral 120 ml 380 ml IV Total 975 ml 825 ml # Voids 3 # Bowel Movements 1 Objective General Appearance: WD/WN, no apparent distress, alert EENT: PERRL/EOMI, normal ENT inspection Neck: non-tender, normal alignment, supple Cardiovascular: normal peripheral pulses, normal rate, regular rhythm, no gallop/murmur, no JVD Respiratory/Chest: chest wall non-tender, lungs clear, normal breath sounds, no respiratory distress, no accessory muscle use Abdomen: normal bowel sounds, non tender, soft, no organomegaly, no mass Extremities: normal range of motion 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 (2) Hypercholesteremia (3) Osteoarthritis of right knee (4) Ovarian cancer in remission (5) Metabolic encephalopathy (6) Opiate overdose Assessment & Plan: S/P narcan (7) Depression Assessment & Plan: await psychiatry eval. Cont cymbalta and seroquel Status: progressing JULITO CASAREZ Nov 19, 2016 16:32
[2016-11-19 20:00] VITALS: BP 143/97
[2016-11-19] MEDS: Tylenol #4 Tab (300mg/60mg) ORAL PRN (20:27)
[2016-11-20] VITALS (7 sets, daily range): BP systolic 100–129; BP diastolic 52–92
[2016-11-20] MEDS: D5 1/2NS w/KCl 20mEq 1,000 ML IV SCH ×3 (06:25→23:00)
[2016-11-20 07:53] LABS: BASOPHILS % (AUTO) 1.5 % (0.0-2.0); EOSINOPHILS % (AUTO) 2.9 % (0.0-3.0); LYMPHOCYTES % (AUTO) 36.8 % (20.0-45.0); MEAN CORPUSCULAR HEMOGLOBIN 32.5 PG (27.0-31.0); MEAN CORPUSCULAR HGB CONC 31.7 G/DL (32.0-36.0); MEAN CORPUSCULAR VOLUME 103 FL (80-99); MEAN PLATELET VOLUME 6.1 FL (6.5-10.1); MONOCYTES % (AUTO) 9.8 % (1.0-10.0); NEUTROPHILS % (AUTO) 49.1 % (45.0-75.0); PLATELET COUNT 221 K/UL (150-450); RED BLOOD COUNT 3.47 M/UL (4.20-5.40); RED CELL DISTRIBUTION WIDTH 12.9 % (11.6-14.8); WHITE BLOOD COUNT 7.5 K/UL (4.8-10.8)
[2016-11-20 08:13] LABS: ANION GAP 15 (5-15); CALCIUM 9.8 mg/dL (8.6-10.2); CARBON DIOXIDE 26 mEQ/L (20-30); CHLORIDE 98 mEQ/L (98-107); CREATININE 0.7 mg/dL (0.5-0.9); GLOMERULAR FILTRATION RATE > 60 mL/min (>60); HEMOLYSIS 3; POTASSIUM 4.2 mEQ/L (3.4-4.9); SODIUM 139 mEQ/L (135-145)
[2016-11-20] MEDS: Bumetanide 1mg tab ORAL SCH (09:10)
[2016-11-20] MEDS: DULoxetine 30mg cap ORAL SCH ×2 (09:10→17:18)
[2016-11-20] MEDS: Thiamine 100mg tab ORAL SCH (09:10)
[2016-11-20] MEDS: Allopurinol 100mg Tab ORAL SCH ×2 (09:11→17:20)
[2016-11-20] MEDS: Metoprolol 25mg tab ORAL SCH ×2 (09:11→21:15)
[2016-11-20] MEDS: Heparin 5000 units/ml inj SUBQ SCH ×2 (09:14→21:15)
[2016-11-20] MEDS: Tylenol #4 Tab (300mg/60mg) ORAL PRN ×2 (10:20→17:24)
--- NOTE | 2016-11-20 12:58 | Internal Med Progress Note ---
Subjective Date of Service: Nov 20, 2016 Physician Name Julito Casarez Attending Physician Kingsley Parker MD Current Medications Medications (Trade) Dose Ordered Sig/Luz Route PRN Reason Start Time Stop Time Status Last Admin Dose Admin Acetaminophen/ Codeine Phosphate (Tylenol #4) 1 ea Q6H PRN ORAL For Pain 11/19/16 16:45 11/26/16 16:44 11/20/16 10:20 Allopurinol (Zyloprim) 100 mg BID ORAL 11/17/16 09:00 12/17/16 08:59 11/20/16 09:11 Bisacodyl (Dulcolax) 10 mg DAILYPRN PRN RECTAL Constipation 11/17/16 07:45 12/17/16 07:44 Bumetanide (Bumex) 2 mg DAILY ORAL 11/17/16 10:00 12/17/16 09:59 11/20/16 09:10 Dextrose (Dextrose 50%) STAT PRN IV Hypoglycemia 11/17/16 07:45 12/17/16 07:44 Dextrose/ Electrolytes (D5 0.45%NS W/ KCl 20mEq) 1,000 ml @ 75 mls/hr [id number] IV 11/17/16 12:00 12/17/16 11:59 11/20/16 06:25 Duloxetine HCl (Cymbalta) 60 mg BID ORAL 11/17/16 09:00 12/17/16 08:59 11/20/16 09:10 Ferrous Sulfate (Feosol) 325 mg BID ORAL 11/17/16 09:00 12/17/16 08:59 11/20/16 09:10 Folic Acid (Folate) 1 mg DAILY ORAL 11/17/16 09:00 12/17/16 08:59 11/20/16 09:11 Gabapentin (Neurontin) 400 mg THREE TIMES A DAY ORAL 11/17/16 09:00 12/17/16 08:59 11/20/16 12:52 Gabapentin 100 mg 100 mg THREE TIMES A DAY ORAL 11/17/16 09:00 12/17/16 08:59 11/20/16 12:52 Heparin Sodium (Porcine) (Heparin 5000 units/ml) 5,000 units EVERY 12 HOURS SUBQ 11/17/16 09:00 12/17/16 08:59 11/20/16 09:14 Lidocaine (Lidoderm 5% PATCH) 1 patch DAILY PRN TDERMAL For Pain 11/17/16 07:45 12/17/16 07:44 Metoprolol Tartrate (Lopressor) 25 mg Q12HR ORAL 11/17/16 09:00 12/17/16 08:59 11/20/16 09:11 Pantoprazole (Protonix) 40 mg EVERY 12 HOURS ORAL 11/17/16 09:00 12/17/16 08:59 11/20/16 09:10 Prochlorperazine (Compazine) 10 mg BID PRN ORAL Nausea & Vomiting 11/17/16 08:30 12/17/16 08:29 Quetiapine Fumarate (SEROquel) 25 mg QHS ORAL 11/17/16 21:00 12/17/16 20:59 11/19/16 20:27 Temazepam (Restoril) 7.5 mg QHS PRN ORAL Insomnia 11/17/16 08:00 11/24/16 07:44 11/19/16 23:43 Thiamine HCl (Vitamin B1) 100 mg DAILY ORAL 11/17/16 09:00 12/17/16 08:59 11/20/16 09:10 Allergies: Coded Allergies: SULFA (SULFONAMIDE ANTIBIOTICS) (Verified Allergy, Mild, Hives, 04/20/13) Uncoded Allergies: FISH (Allergy, Severe, Swelling of throat, lips and hives, 11/17/16) ROS Limited/Unobtainable: No Constitutional: Reports: no symptoms HEENT: Reports: no symptoms Cardiovascular: Reports: no symptoms Respiratory: Reports: no symptoms Gastrointestinal/Abdominal: Reports: no symptoms Genitourinary: Reports: no symptoms Neurologic/Psychiatric: Reports: no symptoms Subjective 66 YO F admitted with decreased respiratory rate. Cover for Int Med-Dr Parker. Await psychiatry consult. Objective Last Vital Signs Date Time Temp Pulse Resp B/P Pulse Ox O2 Delivery O2 Flow Rate FiO2 11/20/16 09:11 99 120/88 11/20/16 08:00 96.9 17 99 Room Air 11/19/16 04:00 90 Laboratory Tests Test 11/20/16 06:45 White Blood Count 7.5 K/UL (4.8-10.8) Red Blood Count 3.47 M/UL (4.20-5.40) L Hemoglobin 11.3 G/DL (12.0-16.0) L Hematocrit 35.7 % (37.0-47.0) L Mean Corpuscular Volume 103 FL (80-99) H Mean Corpuscular Hemoglobin 32.5 PG (27.0-31.0) H Mean Corpuscular Hemoglobin Concent 31.7 G/DL (32.0-36.0) L Red Cell Distribution Width 12.9 % (11.6-14.8) Platelet Count 221 K/UL (150-450) Mean Platelet Volume 6.1 FL (6.5-10.1) L Neutrophils (%) (Auto) 49.1 % (45.0-75.0) Lymphocytes (%) (Auto) 36.8 % (20.0-45.0) Monocytes (%) (Auto) 9.8 % (1.0-10.0) Eosinophils (%) (Auto) 2.9 % (0.0-3.0) Basophils (%) (Auto) 1.5 % (0.0-2.0) Sodium Level 139 mEQ/L (135-145) Potassium Level 4.2 mEQ/L (3.4-4.9) Chloride Level 98 mEQ/L (98-107) Carbon Dioxide Level 26 mEQ/L (20-30) Anion Gap 15 (5-15) Blood Urea Nitrogen 13 mg/dL (7-23) Creatinine 0.7 mg/dL (0.5-0.9) Estimat Glomerular Filtration Rate > 60 mL/min (>60) Glucose Level 92 mg/dL (74-106) Calcium Level 9.8 mg/dL (8.6-10.2) Intake and Output 11/19/16 11/20/16 19:00 07:00 Intake Total 695 ml 1421.25 ml Balance 695 ml 1421.25 ml Intake Oral 620 ml 540 ml IV Total 75 ml 881.25 ml # Voids 5 4 # Bowel Movements 1 Objective General Appearance: WD/WN, no apparent distress, alert EENT: PERRL/EOMI, normal ENT inspection Neck: non-tender, normal alignment, supple Cardiovascular: normal peripheral pulses, normal rate, regular rhythm, no gallop/murmur, no JVD Respiratory/Chest: chest wall non-tender, lungs clear, normal breath sounds, no respiratory distress, no accessory muscle use Abdomen: normal bowel sounds, non tender, soft, no organomegaly, no mass Extremities: normal range of motion 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 (2) Hypercholesteremia (3) Osteoarthritis of right knee (4) Ovarian cancer in remission (5) Metabolic encephalopathy (6) Opiate overdose Assessment & Plan: S/P narcan; await psych consult. (7) Depression Assessment & Plan: await psychiatry eval. Cont cymbalta and seroquel Status: progressing Assessment/Plan Await PET/psych eval for possible 5150; re: opiate overdose. JULITO CASAREZ Nov 20, 2016 12:58
--- NOTE | 2016-11-20 15:39 | Pulmonology Progress Note ---
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 pt/ot dc planning Subjective ROS Limited/Unobtainable: No Interval Events: asymptomatic Allergies: Coded Allergies: SULFA (SULFONAMIDE ANTIBIOTICS) (Verified Allergy, Mild, Hives, 04/20/13) Uncoded Allergies: FISH (Allergy, Severe, Swelling of throat, lips and hives, 11/17/16) Objective Last 24 Hour Vital Signs Date Time Temp Pulse Resp B/P Pulse Ox O2 Delivery O2 Flow Rate FiO2 11/20/16 12:00 86 11/20/16 12:00 97.0 87 18 129/92 98 Room Air 11/20/16 09:11 99 120/88 11/20/16 08:00 91 11/20/16 08:00 96.9 99 17 120/88 99 Room Air 11/20/16 04:00 97.7 94 20 118/89 100 Room Air 11/20/16 04:00 95 11/20/16 00:00 87 11/20/16 00:00 97.5 98 20 125/80 100 Room Air 11/19/16 20:27 98 143/97 11/19/16 20:00 101 11/19/16 20:00 97.8 98 19 143/97 99 Room Air 11/19/16 16:00 107 11/19/16 16:00 97.9 110 20 121/90 100 Room Air Intake and Output 11/19/16 11/20/16 19:00 07:00 Intake Total 695 ml 1421.25 ml Balance 695 ml 1421.25 ml Intake Oral 620 ml 540 ml IV Total 75 ml 881.25 ml # Voids 5 4 # Bowel Movements 1 General Appearance: WD/WN HEENT: normocephalic Respiratory/Chest: chest wall non-tender, normal breath sounds Cardiovascular: normal peripheral pulses, normal rate Abdomen: normal bowel sounds, soft, non tender Genitourinary: normal external genitalia Neurologic/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: 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 grossly normal, no motor/sensory deficits Laboratory Tests 11/20/16 06:45: White Blood Count 7.5, Red Blood Count 3.47L, Hemoglobin 11.3L, Hematocrit 35.7L , Mean Corpuscular Volume 103H, Mean Corpuscular Hemoglobin 32.5H, Mean Corpuscular Hemoglobin Concent 31.7L, Red Cell Distribution Width 12.9, Platelet Count 221, Mean Platelet Volume 6.1L, Neutrophils (%) (Auto) 49.1, Lymphocytes (%) (Auto) 36.8, Monocytes (%) (Auto) 9.8, Eosinophils (%) (Auto) 2.9, Basophils (%) (Auto) 1.5, Sodium Level 139, Potassium Level 4.2, Chloride Level 98, Carbon Dioxide Level 26, Anion Gap 15, Blood Urea Nitrogen 13, Creatinine 0.7, Estimat Glomerular Filtration Rate > 60, Glucose Level 92, Calcium Level 9.8 Current Medications Medications (Trade) Dose Ordered Sig/Luz Route PRN Reason Start Time Stop Time Status Last Admin Dose Admin Acetaminophen/ Codeine Phosphate (Tylenol #4) 1 ea Q6H PRN ORAL For Pain 11/19/16 16:45 11/26/16 16:44 11/20/16 10:20 Allopurinol (Zyloprim) 100 mg BID ORAL 11/17/16 09:00 12/17/16 08:59 11/20/16 09:11 Bisacodyl (Dulcolax) 10 mg DAILYPRN PRN RECTAL Constipation 11/17/16 07:45 12/17/16 07:44 Bumetanide (Bumex) 2 mg DAILY ORAL 11/17/16 10:00 12/17/16 09:59 11/20/16 09:10 Dextrose (Dextrose 50%) STAT PRN IV Hypoglycemia 11/17/16 07:45 12/17/16 07:44 Dextrose/ Electrolytes (D5 0.45%NS W/ KCl 20mEq) 1,000 ml @ 75 mls/hr [id number] IV 11/17/16 12:00 12/17/16 11:59 11/20/16 06:25 Duloxetine HCl (Cymbalta) 60 mg BID ORAL 11/17/16 09:00 12/17/16 08:59 11/20/16 09:10 Ferrous Sulfate (Feosol) 325 mg BID ORAL 11/17/16 09:00 12/17/16 08:59 11/20/16 09:10 Folic Acid (Folate) 1 mg DAILY ORAL 11/17/16 09:00 12/17/16 08:59 11/20/16 09:11 Gabapentin (Neurontin) 400 mg THREE TIMES A DAY ORAL 11/17/16 09:00 12/17/16 08:59 11/20/16 12:52 Gabapentin 100 mg 100 mg THREE TIMES A DAY ORAL 11/17/16 09:00 12/17/16 08:59 11/20/16 12:52 Heparin Sodium (Porcine) (Heparin 5000 units/ml) 5,000 units EVERY 12 HOURS SUBQ 11/17/16 09:00 12/17/16 08:59 11/20/16 09:14 Lidocaine (Lidoderm 5% PATCH) 1 patch DAILY PRN TDERMAL For Pain 11/17/16 07:45 12/17/16 07:44 Metoprolol Tartrate (Lopressor) 25 mg Q12HR ORAL 11/17/16 09:00 12/17/16 08:59 11/20/16 09:11 Pantoprazole (Protonix) 40 mg EVERY 12 HOURS ORAL 11/17/16 09:00 12/17/16 08:59 11/20/16 09:10 Prochlorperazine (Compazine) 10 mg BID PRN ORAL Nausea & Vomiting 11/17/16 08:30 12/17/16 08:29 Quetiapine Fumarate (SEROquel) 25 mg QHS ORAL 11/17/16 21:00 12/17/16 20:59 11/19/16 20:27 Temazepam (Restoril) 7.5 mg QHS PRN ORAL Insomnia 11/17/16 08:00 11/24/16 07:44 11/19/16 23:43 Thiamine HCl (Vitamin B1) 100 mg DAILY ORAL 11/17/16 09:00 12/17/16 08:59 11/20/16 09:10 GÓMEZ VALDIVIA Nov 20, 2016 15:39
[2016-11-21] VITALS (7 sets, daily range): BP systolic 126–136; BP diastolic 62–91
[2016-11-21] MEDS: Tylenol #4 Tab (300mg/60mg) ORAL PRN ×4 (00:38→23:07)
[2016-11-21] MEDS ORDERED: Tylenol #4 Tab (300mg/60mg) ORAL PRN (04:45)
[2016-11-21] MEDS: Allopurinol 100mg Tab ORAL SCH ×2 (08:23→17:59)
[2016-11-21] MEDS: DULoxetine 30mg cap ORAL SCH ×2 (08:23→17:57)
[2016-11-21 08:24] LABS: BASOPHILS % (AUTO) 1.4 % (0.0-2.0); EOSINOPHILS % (AUTO) 3.3 % (0.0-3.0); LYMPHOCYTES % (AUTO) 30.1 % (20.0-45.0); MEAN CORPUSCULAR HEMOGLOBIN 32.4 PG (27.0-31.0); MEAN CORPUSCULAR HGB CONC 31.6 G/DL (32.0-36.0); MEAN CORPUSCULAR VOLUME 102 FL (80-99); MEAN PLATELET VOLUME 5.8 FL (6.5-10.1); MONOCYTES % (AUTO) 11.2 % (1.0-10.0); NEUTROPHILS % (AUTO) 53.9 % (45.0-75.0); PLATELET COUNT 216 K/UL (150-450); RED BLOOD COUNT 3.34 M/UL (4.20-5.40); RED CELL DISTRIBUTION WIDTH 13.4 % (11.6-14.8); WHITE BLOOD COUNT 6.8 K/UL (4.8-10.8)
[2016-11-21] MEDS: Metoprolol 25mg tab ORAL SCH ×2 (08:33→21:30)
[2016-11-21] MEDS: Heparin 5000 units/ml inj SUBQ SCH ×2 (08:41→21:31)
[2016-11-21 08:54] LABS: ANION GAP 12 (5-15); CALCIUM 9.4 mg/dL (8.6-10.2); CARBON DIOXIDE 27 mEQ/L (20-30); CHLORIDE 101 mEQ/L (98-107); CREATININE 0.7 mg/dL (0.5-0.9); GLOMERULAR FILTRATION RATE > 60 mL/min (>60); HEMOLYSIS 3; POTASSIUM 4.4 mEQ/L (3.4-4.9); SODIUM 140 mEQ/L (135-145)
[2016-11-21] MEDS ORDERED: Prochlorperazine 10mg tab ORAL PRN (09:00)
[2016-11-21] MEDS: Thiamine 100mg tab ORAL SCH (10:31)
[2016-11-21] MEDS: Bumetanide 1mg tab ORAL SCH (10:32)
[2016-11-21] MEDS: D5 1/2NS w/KCl 20mEq 1,000 ML IV SCH (12:20)
--- NOTE | 2016-11-21 16:34 | Discharge Summary ---
Discharge Summary Hospital Course Date of Admission Nov 16, 2016 at 22:53 Date of Discharge Admitting Diagnosis substance abuse(OD) HPI Nakia Ruiz is a 66 year old female who was admitted on Nov 16, 2016 at 22: 53 for Substance Abuse,Overdose Hospital Course Dictated for Int Med-Dr Parker no. [id number]. Discharge Discharge Disposition Patient was discharged to Discharge Diagnoses: DRAKE CASAREZ Nov 21, 2016 16:34
--- NOTE | 2016-11-21 17:01 | Internal Med Progress Note ---
Subjective Date of Service: Nov 21, 2016 Physician Name Drake Casarez Attending Physician Kingsley Parker MD Current Medications Medications (Trade) Dose Ordered Sig/Luz Route PRN Reason Start Time Stop Time Status Last Admin Dose Admin Acetaminophen/ Codeine Phosphate (Tylenol #4) 1 ea Q6H PRN ORAL For Pain 11/21/16 00:27 11/28/16 00:26 11/21/16 16:43 Allopurinol (Zyloprim) 100 mg BID ORAL 11/21/16 09:00 12/21/16 08:59 11/21/16 08:23 Bisacodyl (Dulcolax) 10 mg DAILYPRN PRN RECTAL Constipation 11/21/16 07:45 12/21/16 07:44 Bumetanide (Bumex) 2 mg DAILY ORAL 11/21/16 09:00 12/21/16 08:59 11/21/16 10:32 Dextrose (Dextrose 50%) STAT PRN IV Hypoglycemia 11/21/16 07:45 12/21/16 07:44 Dextrose/ Electrolytes (D5 0.45%NS W/ KCl 20mEq) 1,000 ml @ 75 mls/hr [id number] IV 11/20/16 23:00 12/20/16 22:59 Duloxetine HCl (Cymbalta) 60 mg BID ORAL 11/21/16 09:00 12/21/16 08:59 11/21/16 08:23 Ferrous Sulfate (Feosol) 325 mg BID ORAL 11/21/16 09:00 12/21/16 08:59 11/21/16 08:22 Folic Acid (Folate) 1 mg DAILY ORAL 11/21/16 09:00 12/21/16 08:59 11/21/16 08:21 Gabapentin (Neurontin) 100 mg THREE TIMES A DAY ORAL 11/21/16 09:00 12/21/16 08:59 11/21/16 13:20 Gabapentin (Neurontin) 400 mg THREE TIMES A DAY ORAL 11/21/16 09:00 12/21/16 08:59 11/21/16 13:20 Heparin Sodium (Porcine) (Heparin 5000 units/ml) 5,000 units EVERY 12 HOURS SUBQ 11/21/16 09:00 12/21/16 08:59 11/21/16 08:41 Lidocaine (Lidoderm 5% PATCH) 1 patch DAILY PRN TDERMAL For Pain 11/21/16 09:00 12/21/16 08:59 Metoprolol Tartrate (Lopressor) 25 mg Q12HR ORAL 11/21/16 09:00 12/21/16 08:59 11/21/16 08:33 Pantoprazole (Protonix) 40 mg EVERY 12 HOURS ORAL 11/21/16 09:00 12/21/16 08:59 11/21/16 08:23 Prochlorperazine (Compazine) 10 mg BID PRN ORAL Nausea & Vomiting 11/21/16 09:00 12/21/16 08:59 11/21/16 08:21 Quetiapine Fumarate (SEROquel) 25 mg QHS ORAL 11/21/16 21:00 12/21/16 20:59 Temazepam (Restoril) 7.5 mg QHS PRN ORAL Insomnia 11/21/16 00:26 11/28/16 00:25 11/21/16 00:34 Thiamine HCl (Vitamin B1) 100 mg DAILY ORAL 11/21/16 09:00 12/21/16 08:59 11/21/16 10:31 Allergies: Coded Allergies: SULFA (SULFONAMIDE ANTIBIOTICS) (Verified Allergy, Mild, Hives, 04/20/13) Uncoded Allergies: FISH (Allergy, Severe, Swelling of throat, lips and hives, 11/17/16) ROS Limited/Unobtainable: No Constitutional: Reports: no symptoms HEENT: Reports: no symptoms Cardiovascular: Reports: no symptoms Respiratory: Reports: no symptoms Gastrointestinal/Abdominal: Reports: no symptoms Genitourinary: Reports: no symptoms Neurologic/Psychiatric: Reports: no symptoms Subjective 66 YO F admitted with decreased respiratory rate. Cover for Shellie Rutherford-Dr Parker. Discharge on hold - Awaiting psychiatry consult per family request Objective Last Vital Signs Date Time Temp Pulse Resp B/P Pulse Ox O2 Delivery O2 Flow Rate FiO2 11/21/16 16:00 97.9 18 127/62 Room Air 11/21/16 14:00 92 98 11/20/16 20:06 11/19/16 04:00 90 Laboratory Tests Test 11/21/16 08:00 White Blood Count 6.8 K/UL (4.8-10.8) Red Blood Count 3.34 M/UL (4.20-5.40) L Hemoglobin 10.8 G/DL (12.0-16.0) L Hematocrit 34.2 % (37.0-47.0) L Mean Corpuscular Volume 102 FL (80-99) H Mean Corpuscular Hemoglobin 32.4 PG (27.0-31.0) H Mean Corpuscular Hemoglobin Concent 31.6 G/DL (32.0-36.0) L Red Cell Distribution Width 13.4 % (11.6-14.8) Platelet Count 216 K/UL (150-450) Mean Platelet Volume 5.8 FL (6.5-10.1) L Neutrophils (%) (Auto) 53.9 % (45.0-75.0) Lymphocytes (%) (Auto) 30.1 % (20.0-45.0) Monocytes (%) (Auto) 11.2 % (1.0-10.0) H Eosinophils (%) (Auto) 3.3 % (0.0-3.0) H Basophils (%) (Auto) 1.4 % (0.0-2.0) Sodium Level 140 mEQ/L (135-145) Potassium Level 4.4 mEQ/L (3.4-4.9) Chloride Level 101 mEQ/L (98-107) Carbon Dioxide Level 27 mEQ/L (20-30) Anion Gap 12 (5-15) Blood Urea Nitrogen 17 mg/dL (7-23) Creatinine 0.7 mg/dL (0.5-0.9) Estimat Glomerular Filtration Rate > 60 mL/min (>60) Glucose Level 99 mg/dL (74-106) Calcium Level 9.4 mg/dL (8.6-10.2) Intake and Output 11/20/16 11/21/16 19:00 07:00 Intake Total 1580 ml 1328 ml Balance 1580 ml 1328 ml Intake Oral 680 ml 500 ml IV Total 900 ml 828 ml # Voids 6 5 # Bowel Movements 1 Objective General Appearance: WD/WN, no apparent distress, alert EENT: PERRL/EOMI, normal ENT inspection Neck: non-tender, normal alignment, supple Cardiovascular: normal peripheral pulses, normal rate, regular rhythm, no gallop/murmur, no JVD Respiratory/Chest: chest wall non-tender, lungs clear, normal breath sounds, no respiratory distress, no accessory muscle use Abdomen: normal bowel sounds, non tender, soft, no organomegaly, no mass Extremities: normal range of motion 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 (2) Hypercholesteremia (3) Osteoarthritis of right knee (4) Ovarian cancer in remission (5) Metabolic encephalopathy (6) Opiate overdose Assessment & Plan: S/P narcan; await psych consult. (7) Depression Assessment & Plan: await psychiatry eval. Cont cymbalta and seroquel Status: unchanged Assessment/Plan Hold discharge - Await PET/psych eval per family request for possible 5150; re: opiate overdose. DRAKE CASAREZ Nov 21, 2016 17:01
--- NOTE | 2016-11-21 23:21 | Pulmonology Progress Note ---
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 pt/ot dc planning pts brother wants psych consult Subjective ROS Limited/Unobtainable: No Constitutional: Reports: no symptoms HEENT: Repors: no symptoms Respiratory: Reports: no symptoms Allergies: Coded Allergies: SULFA (SULFONAMIDE ANTIBIOTICS) (Verified Allergy, Mild, Hives, 04/20/13) Uncoded Allergies: FISH (Allergy, Severe, Swelling of throat, lips and hives, 11/17/16) Objective Last 24 Hour Vital Signs Date Time Temp Pulse Resp B/P Pulse Ox O2 Delivery O2 Flow Rate FiO2 11/21/16 21:30 100 126/90 11/21/16 19:00 96.0 100 18 126/90 Room Air 11/21/16 16:00 97.9 18 127/62 Room Air 11/21/16 14:16 97.7 11/21/16 14:16 97.7 11/21/16 14:00 97.2 92 20 131/91 98 Room Air 11/21/16 12:00 97.2 92 20 131/91 98 Room Air 11/21/16 09:46 97.7 11/21/16 08:33 84 131/91 11/21/16 08:00 97.2 96 20 136/86 100 Room Air 11/21/16 04:00 97.7 84 18 131/91 100 Room Air 11/21/16 00:00 97.0 18 135/88 100 Room Air Intake and Output 11/20/16 11/21/16 19:00 07:00 Intake Total 1580 ml 1328 ml Balance 1580 ml 1328 ml Intake Oral 680 ml 500 ml IV Total 900 ml 828 ml # Voids 6 5 # Bowel Movements 1 General Appearance: WD/WN, no acute distress HEENT: normocephalic, atraumatic Cardiovascular: normal peripheral pulses, normal rate, regular rhythm Abdomen: normal bowel sounds, soft, non tender Extremities: no cyanosis Skin: no rash 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 Laboratory Tests 11/21/16 08:00: White Blood Count 6.8, Red Blood Count 3.34L, Hemoglobin 10.8L, Hematocrit 34.2L , Mean Corpuscular Volume 102H, Mean Corpuscular Hemoglobin 32.4H, Mean Corpuscular Hemoglobin Concent 31.6L, Red Cell Distribution Width 13.4, Platelet Count 216, Mean Platelet Volume 5.8L, Neutrophils (%) (Auto) 53.9, Lymphocytes (%) (Auto) 30.1, Monocytes (%) (Auto) 11.2H, Eosinophils (%) (Auto) 3.3H, Basophils (%) (Auto) 1.4, Sodium Level 140, Potassium Level 4.4, Chloride Level 101, Carbon Dioxide Level 27, Anion Gap 12, Blood Urea Nitrogen 17, Creatinine 0.7, Estimat Glomerular Filtration Rate > 60, Glucose Level 99, Calcium Level 9.4 Current Medications Medications (Trade) Dose Ordered Sig/Luz Route PRN Reason Start Time Stop Time Status Last Admin Dose Admin Acetaminophen/ Codeine Phosphate (Tylenol #4) 1 ea Q6H PRN ORAL For Pain 11/21/16 00:27 11/28/16 00:26 11/21/16 23:07 Allopurinol (Zyloprim) 100 mg BID ORAL 11/21/16 09:00 12/21/16 08:59 11/21/16 17:59 Bisacodyl (Dulcolax) 10 mg DAILYPRN PRN RECTAL Constipation 11/21/16 07:45 12/21/16 07:44 Bumetanide (Bumex) 2 mg DAILY ORAL 11/21/16 09:00 12/21/16 08:59 11/21/16 10:32 Dextrose (Dextrose 50%) STAT PRN IV Hypoglycemia 11/21/16 07:45 12/21/16 07:44 Dextrose/ Electrolytes (D5 0.45%NS W/ KCl 20mEq) 1,000 ml @ 75 mls/hr [id number] IV 11/20/16 23:00 12/20/16 22:59 Duloxetine HCl (Cymbalta) 60 mg BID ORAL 11/21/16 09:00 12/21/16 08:59 11/21/16 17:57 Ferrous Sulfate (Feosol) 325 mg BID ORAL 11/21/16 09:00 12/21/16 08:59 11/21/16 17:57 Folic Acid (Folate) 1 mg DAILY ORAL 11/21/16 09:00 12/21/16 08:59 11/21/16 08:21 Gabapentin (Neurontin) 100 mg THREE TIMES A DAY ORAL 11/21/16 09:00 12/21/16 08:59 11/21/16 18:02 Gabapentin (Neurontin) 400 mg THREE TIMES A DAY ORAL 11/21/16 09:00 12/21/16 08:59 11/21/16 17:58 Heparin Sodium (Porcine) (Heparin 5000 units/ml) 5,000 units EVERY 12 HOURS SUBQ 11/21/16 09:00 12/21/16 08:59 11/21/16 21:31 Lidocaine (Lidoderm 5% PATCH) 1 patch DAILY PRN TDERMAL For Pain 11/21/16 09:00 12/21/16 08:59 Metoprolol Tartrate (Lopressor) 25 mg Q12HR ORAL 11/21/16 09:00 12/21/16 08:59 11/21/16 21:30 Pantoprazole (Protonix) 40 mg EVERY 12 HOURS ORAL 11/21/16 09:00 12/21/16 08:59 11/21/16 21:28 Prochlorperazine (Compazine) 10 mg BID PRN ORAL Nausea & Vomiting 11/21/16 09:00 12/21/16 08:59 11/21/16 08:21 Quetiapine Fumarate (SEROquel) 25 mg QHS ORAL 11/21/16 21:00 12/21/16 20:59 11/21/16 21:27 Temazepam (Restoril) 7.5 mg QHS PRN ORAL Insomnia 11/21/16 00:26 11/28/16 00:25 11/21/16 00:34 Thiamine HCl (Vitamin B1) 100 mg DAILY ORAL 11/21/16 09:00 12/21/16 08:59 11/21/16 10:31 GÓMEZ VALDIVIA Nov 21, 2016 23:21
[2016-11-22] VITALS: BP 104/70
[2016-11-22] MEDS: D5 1/2NS w/KCl 20mEq 1,000 ML IV SCH ×3 (01:40→19:02)
[2016-11-22 04:00] VITALS: BP 116/85
[2016-11-22 08:04] VITALS: BP 139/87
[2016-11-22] MEDS: Heparin 5000 units/ml inj SUBQ SCH ×2 (08:29→22:05)
[2016-11-22] MEDS: Bumetanide 1mg tab ORAL SCH (08:30)
[2016-11-22] MEDS: DULoxetine 30mg cap ORAL SCH ×2 (08:30→18:57)
[2016-11-22] MEDS: Metoprolol 25mg tab ORAL SCH ×2 (08:31→22:05)
[2016-11-22] MEDS: Tylenol #4 Tab (300mg/60mg) ORAL PRN ×3 (08:31→22:46)
[2016-11-22] MEDS: Allopurinol 100mg Tab ORAL SCH ×2 (08:37→18:56)
[2016-11-22] MEDS: Thiamine 100mg tab ORAL SCH (08:37)
--- NOTE | 2016-11-22 08:38 | Discharge Summary ---
DATE OF ADMISSION: 11/16/2016 DATE OF DISCHARGE: 11/21/2016 ADMITTING DIAGNOSES: 1. Intentional overdose 2. Hypertension. 3. Hypercholesterolemia. 4. Osteoarthritis of right knee. 5. History of ovarian cancer. DISCHARGE DIAGNOSES: 1. Metabolic encephalopathy. 2. Opiate overdose. 3. Hypertension. 4. Hypercholesterolemia. 5. Osteoarthritis of the right knee. 6. Ovarian cancer, history of. HOSPITAL COURSE BY PROBLEM LIST: 1. Metabolic encephalopathy. This was thought to be secondary to over-usage of opiates. The patient received Narcan prior to admission. The patient's mental status has cleared during the hospitalization. Psychiatric consultation was obtained with Dr. Butcher. The patient has been medically cleared for discharge to [facility] today, 11/21/2016. 2. Hypertension. The patient remained on Bumex 2 mg one tablet p.o. daily. Blood pressure was well controlled during the hospitalization. 3. Hypercholesterolemia. The patient remained on Lipitor 10 mg one tablet p.o. daily. The patient is to follow up with her primary care physician in one week. 4. Osteoarthritis, right knee. 5. Ovarian cancer, history of. 6. Depression. The patient remained on Seroquel 25 mg one tablet p.o. nightly and Cymbalta 60 mg one tablet p.o. twice daily. The patient is to continue this upon discharge. DISCHARGE MEDICATIONS: Please refer to discharge medication list. DISCHARGE INSTRUCTIONS: The patient was discharged to [facility] today, 11/21/2016. Julito Schilling M.D. DR: Jose Raul JOB#: [id number] CC:
[2016-11-22 11:37] VITALS: BP 132/78
--- NOTE | 2016-11-22 12:12 | Internal Med Progress Note ---
Subjective Date of Service: Nov 22, 2016 Physician Name Drake Casarez Attending Physician Kingsley Parker MD Current Medications Medications (Trade) Dose Ordered Sig/Luz Route PRN Reason Start Time Stop Time Status Last Admin Dose Admin Acetaminophen/ Codeine Phosphate (Tylenol #4) 1 ea Q6H PRN ORAL For Pain 11/21/16 00:27 11/28/16 00:26 11/22/16 08:31 Allopurinol (Zyloprim) 100 mg BID ORAL 11/21/16 09:00 12/21/16 08:59 11/22/16 08:37 Bisacodyl (Dulcolax) 10 mg DAILYPRN PRN RECTAL Constipation 11/21/16 07:45 12/21/16 07:44 Bumetanide (Bumex) 2 mg DAILY ORAL 11/21/16 09:00 12/21/16 08:59 11/22/16 08:30 Dextrose (Dextrose 50%) STAT PRN IV Hypoglycemia 11/21/16 07:45 12/21/16 07:44 Dextrose/ Electrolytes (D5 0.45%NS W/ KCl 20mEq) 1,000 ml @ 75 mls/hr [id number] IV 11/20/16 23:00 12/20/16 22:59 Duloxetine HCl (Cymbalta) 60 mg BID ORAL 11/21/16 09:00 12/21/16 08:59 11/22/16 08:30 Ferrous Sulfate (Feosol) 325 mg BID ORAL 11/21/16 09:00 12/21/16 08:59 11/22/16 08:30 Folic Acid (Folate) 1 mg DAILY ORAL 11/21/16 09:00 12/21/16 08:59 11/22/16 08:30 Gabapentin (Neurontin) 100 mg THREE TIMES A DAY ORAL 11/21/16 09:00 12/21/16 08:59 11/22/16 08:30 Gabapentin (Neurontin) 400 mg THREE TIMES A DAY ORAL 11/21/16 09:00 12/21/16 08:59 11/22/16 08:33 Heparin Sodium (Porcine) (Heparin 5000 units/ml) 5,000 units EVERY 12 HOURS SUBQ 11/21/16 09:00 12/21/16 08:59 11/22/16 08:29 Lidocaine (Lidoderm 5% PATCH) 1 patch DAILY PRN TDERMAL For Pain 11/21/16 09:00 12/21/16 08:59 Metoprolol Tartrate (Lopressor) 25 mg Q12HR ORAL 11/21/16 09:00 12/21/16 08:59 11/22/16 08:31 Pantoprazole (Protonix) 40 mg EVERY 12 HOURS ORAL 11/21/16 09:00 12/21/16 08:59 11/22/16 08:33 Prochlorperazine (Compazine) 10 mg BID PRN ORAL Nausea & Vomiting 11/21/16 09:00 12/21/16 08:59 11/21/16 08:21 Quetiapine Fumarate (SEROquel) 25 mg QHS ORAL 11/21/16 21:00 12/21/16 20:59 11/21/16 21:27 Temazepam (Restoril) 7.5 mg QHS PRN ORAL Insomnia 11/21/16 00:26 11/28/16 00:25 11/22/16 00:11 Thiamine HCl (Vitamin B1) 100 mg DAILY ORAL 11/21/16 09:00 12/21/16 08:59 11/22/16 08:37 Allergies: Coded Allergies: SULFA (SULFONAMIDE ANTIBIOTICS) (Verified Allergy, Mild, Hives, 04/20/13) Uncoded Allergies: FISH (Allergy, Severe, Swelling of throat, lips and hives, 11/17/16) ROS Limited/Unobtainable: No Constitutional: Reports: no symptoms HEENT: Reports: no symptoms Cardiovascular: Reports: no symptoms Respiratory: Reports: no symptoms Gastrointestinal/Abdominal: Reports: no symptoms Genitourinary: Reports: no symptoms Neurologic/Psychiatric: Reports: no symptoms Subjective 66 YO F admitted with decreased respiratory rate. Cover for Int Krish-Dr Parker. Discharge on hold - Awaiting PET evaluation per family request Objective Last Vital Signs Date Time Temp Pulse Resp B/P Pulse Ox O2 Delivery O2 Flow Rate FiO2 11/22/16 11:37 98.0 101 18 132/78 99 Room Air 11/20/16 20:06 11/19/16 04:00 90 Intake and Output 11/21/16 11/22/16 19:00 07:00 Intake Total 360 ml Balance 360 ml Intake Oral 360 ml # Voids 3 7 # Bowel Movements 3 Objective General Appearance: WD/WN, no apparent distress, alert EENT: PERRL/EOMI, normal ENT inspection Neck: non-tender, normal alignment, supple Cardiovascular: normal peripheral pulses, normal rate, regular rhythm, no gallop/murmur, no JVD Respiratory/Chest: chest wall non-tender, lungs clear, normal breath sounds, no respiratory distress, no accessory muscle use Abdomen: normal bowel sounds, non tender, soft, no organomegaly, no mass Extremities: normal range of motion 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 (2) Hypercholesteremia (3) Osteoarthritis of right knee (4) Ovarian cancer in remission (5) Metabolic encephalopathy (6) Opiate overdose Assessment & Plan: S/P narcan; await psych consult. (7) Depression Assessment & Plan: await psychiatry eval. Cont cymbalta and seroquel Status: stable Assessment/Plan Hold discharge - Await PET eval per family request for possible 5150; re: opiate overdose. DRAKE CASAREZ Nov 22, 2016 12:12
[2016-11-22 12:54] LABS: BASOPHILS % (AUTO) 1.8 % (0.0-2.0); EOSINOPHILS % (AUTO) 2.8 % (0.0-3.0); LYMPHOCYTES % (AUTO) 23.3 % (20.0-45.0); MEAN CORPUSCULAR HEMOGLOBIN 32.3 PG (27.0-31.0); MEAN CORPUSCULAR HGB CONC 32.1 G/DL (32.0-36.0); MEAN CORPUSCULAR VOLUME 101 FL (80-99); MEAN PLATELET VOLUME 6.6 FL (6.5-10.1); MONOCYTES % (AUTO) 10.4 % (1.0-10.0); NEUTROPHILS % (AUTO) 61.7 % (45.0-75.0); PLATELET COUNT 250 K/UL (150-450); RED BLOOD COUNT 3.99 M/UL (4.20-5.40); RED CELL DISTRIBUTION WIDTH 14.1 % (11.6-14.8); WHITE BLOOD COUNT 7.8 K/UL (4.8-10.8)
--- NOTE | 2016-11-22 13:45 | Diagnostic Imaging Report ---
Clinical Indication: Chest pain, history of ovarian carcinoma Technique: IV administration nonionic contrast. Spiral acquisition obtained through the chest. Multiplanar reconstructions generated. Total dose length product 616 mGycm. CTDIvol(s) 8, 64, 17 mGy Comparison: None Findings: The lungs are clear, without infiltrates, effusions, congestion, masses, or nodules. There is minimal compressive atelectatic change at both lung bases. The heart size is upper limits normal. No pericardial effusion. No mediastinal or hilar mass or adenopathy. No axillary or chest wall mass or adenopathy. The included thyroid is unremarkable. There are old healed right rib fracture deformities. There is thoracic dextro scoliotic deformity and mild secondary degenerative change. The upper abdominal anatomy is remarkable for the presence of a subcentimeter low-attenuation lesions which are too small to characterize but most likely represent benign simple cysts. Impression: No acute pulmonary process Minimal compressive atelectatic changes at the lung bases Incidental findings as noted, including old healed rib fractures, thoracic scoliotic deformity, probable hepatic cysts The CT scanner at [facility] is accredited by the [employer] and the scans are performed using protocols designed to limit radiation exposure to as low as reasonably achievable to attain images of sufficient resolution adequate for diagnostic evaluation.
[2016-11-22 16:00] VITALS: BP 122/102
--- NOTE | 2016-11-22 17:48 | Pulmonology Progress Note ---
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 pt/ot dc planning pts brother wants psych consult dc planning in progress. Subjective ROS Limited/Unobtainable: No Interval Events: doing better Allergies: Coded Allergies: SULFA (SULFONAMIDE ANTIBIOTICS) (Verified Allergy, Mild, Hives, 04/20/13) Uncoded Allergies: FISH (Allergy, Severe, Swelling of throat, lips and hives, 11/17/16) Objective Last 24 Hour Vital Signs Date Time Temp Pulse Resp B/P Pulse Ox O2 Delivery O2 Flow Rate FiO2 11/22/16 16:00 98.2 109 18 122/102 97 Room Air 11/22/16 14:49 98.0 11/22/16 14:49 98.0 11/22/16 11:37 98.0 101 18 132/78 99 Room Air 11/22/16 10:06 97.9 11/22/16 08:31 103 139/87 11/22/16 08:04 97.9 103 19 139/87 100 Room Air 11/22/16 04:00 98.1 95 18 116/85 100 Room Air 11/22/16 00:00 97.9 90 18 104/70 100 Room Air 11/21/16 21:30 100 126/90 11/21/16 19:00 96.0 100 18 126/90 Room Air Intake and Output 11/21/16 11/22/16 19:00 07:00 Intake Total 360 ml Balance 360 ml Intake Oral 360 ml # Voids 3 7 # Bowel Movements 3 General Appearance: WD/WN HEENT: normocephalic, atraumatic Respiratory/Chest: chest wall non-tender, lungs clear Breasts: no masses Cardiovascular: normal peripheral pulses Extremities: no cyanosis Skin: no lesions Laboratory Tests 11/22/16 12:40: White Blood Count 7.8, Red Blood Count 3.99L, Hemoglobin 12.9, Hematocrit 40.2, Mean Corpuscular Volume 101H, Mean Corpuscular Hemoglobin 32.3H, Mean Corpuscular Hemoglobin Concent 32.1, Red Cell Distribution Width 14.1, Platelet Count 250, Mean Platelet Volume 6.6, Neutrophils (%) (Auto) 61.7, Lymphocytes (% ) (Auto) 23.3, Monocytes (%) (Auto) 10.4H, Eosinophils (%) (Auto) 2.8, Basophils (%) (Auto) 1.8 Current Medications Medications (Trade) Dose Ordered Sig/Luz Route PRN Reason Start Time Stop Time Status Last Admin Dose Admin Acetaminophen/ Codeine Phosphate (Tylenol #4) 1 ea Q6H PRN ORAL For Pain 11/21/16 00:27 11/28/16 00:26 11/22/16 16:27 Allopurinol (Zyloprim) 100 mg BID ORAL 11/21/16 09:00 12/21/16 08:59 11/22/16 08:37 Bisacodyl (Dulcolax) 10 mg DAILYPRN PRN RECTAL Constipation 11/21/16 07:45 12/21/16 07:44 Bumetanide (Bumex) 2 mg DAILY ORAL 11/21/16 09:00 12/21/16 08:59 11/22/16 08:30 Dextrose (Dextrose 50%) STAT PRN IV Hypoglycemia 11/21/16 07:45 12/21/16 07:44 Dextrose/ Electrolytes (D5 0.45%NS W/ KCl 20mEq) 1,000 ml @ 75 mls/hr [id number] IV 11/20/16 23:00 12/20/16 22:59 11/22/16 12:58 Duloxetine HCl (Cymbalta) 60 mg BID ORAL 11/21/16 09:00 12/21/16 08:59 11/22/16 08:30 Ferrous Sulfate (Feosol) 325 mg BID ORAL 11/21/16 09:00 12/21/16 08:59 11/22/16 08:30 Folic Acid (Folate) 1 mg DAILY ORAL 11/21/16 09:00 12/21/16 08:59 11/22/16 08:30 Gabapentin (Neurontin) 100 mg THREE TIMES A DAY ORAL 11/21/16 09:00 12/21/16 08:59 11/22/16 12:32 Gabapentin (Neurontin) 400 mg THREE TIMES A DAY ORAL 11/21/16 09:00 12/21/16 08:59 11/22/16 12:31 Heparin Sodium (Porcine) (Heparin 5000 units/ml) 5,000 units EVERY 12 HOURS SUBQ 11/21/16 09:00 12/21/16 08:59 11/22/16 08:29 Lidocaine (Lidoderm 5% PATCH) 1 patch DAILY PRN TDERMAL For Pain 11/21/16 09:00 12/21/16 08:59 Metoprolol Tartrate (Lopressor) 25 mg Q12HR ORAL 11/21/16 09:00 12/21/16 08:59 11/22/16 08:31 Pantoprazole (Protonix) 40 mg EVERY 12 HOURS ORAL 11/21/16 09:00 12/21/16 08:59 11/22/16 08:33 Prochlorperazine (Compazine) 10 mg BID PRN ORAL Nausea & Vomiting 11/21/16 09:00 12/21/16 08:59 11/21/16 08:21 Quetiapine Fumarate (SEROquel) 25 mg QHS ORAL 11/21/16 21:00 12/21/16 20:59 11/21/16 21:27 Temazepam (Restoril) 7.5 mg QHS PRN ORAL Insomnia 11/21/16 00:26 11/28/16 00:25 11/22/16 00:11 Thiamine HCl (Vitamin B1) 100 mg DAILY ORAL 11/21/16 09:00 12/21/16 08:59 11/22/16 08:37 GÓMEZ VALDIVIA Nov 22, 2016 17:48
[2016-11-22 19:00] VITALS: BP 147/98
[2016-11-23] VITALS: BP 112/81
[2016-11-23 04:00] VITALS: BP 142/76
[2016-11-23 07:57] VITALS: BP 151/97
[2016-11-23 08:05] LABS: ANION GAP 16 (5-15); CARBON DIOXIDE 23 mEQ/L (20-30); CHLORIDE 99 mEQ/L (98-107); CREATININE 0.7 mg/dL (0.5-0.9); GLOMERULAR FILTRATION RATE > 60 mL/min (>60); HEMOLYSIS 1; POTASSIUM 3.9 mEQ/L (3.4-4.9); SODIUM 138 mEQ/L (135-145)
[2016-11-23] MEDS: DULoxetine 30mg cap ORAL SCH ×2 (09:30→17:42)
[2016-11-23] MEDS: Metoprolol 25mg tab ORAL SCH (09:30)
[2016-11-23] MEDS: Bumetanide 1mg tab ORAL SCH (09:31)
[2016-11-23] MEDS: Thiamine 100mg tab ORAL SCH (09:31)
[2016-11-23] MEDS: Allopurinol 100mg Tab ORAL SCH ×2 (09:31→17:42)
[2016-11-23] MEDS: Heparin 5000 units/ml inj SUBQ SCH (09:34)
[2016-11-23] MEDS: Tylenol #4 Tab (300mg/60mg) ORAL PRN ×2 (09:38→15:44)
--- NOTE | 2016-11-23 10:57 | Consultation ---
DATE OF CONSULTATION: HISTORY OF PRESENT ILLNESS: This is a 66-year-old female with history of multiple medical problems including pain disorder. The patient has been admitted due to opioid pain medication overdose after suicide attempt. Psychiatry was consulted to assess the patient. The patient has history of ovarian cancer, status post hysterectomy, diagnosed in 2003. Also history of hypertension, dyslipidemia, severe osteoarthritis, and depression. She is living in a group home. Psychiatry was consulted to assess for question for dangerousness to self. During the evaluation, the patient still endorses depressed mood, anhedonia, worthlessness, and hopelessness, however, she is denying any suicidal or homicidal ideation. Her cognition is intact. There is no psychotic or manic symptoms. She stated that she has never had any history of suicide attempts prior to this and the suicide attempt was in the context of severe pain. She was prescribed at the emergency room tramadol and shortly after she left the emergency room, she overdosed on her medications. Currently, she denies any suicidal ideation and has this future-oriented thought process. PAST PSYCHIATRIC HISTORY: Diagnosed with depression and has been treated with Cymbalta and Seroquel. PAST MEDICAL HISTORY: Significant for ovarian cancer, dyslipidemia, hypertension, diverticulosis, gastroesophageal reflux disease, osteoarthritis, right knee effusion, and endometriosis. ALLERGIES: Sulfa. SUBSTANCE USE HISTORY: There is history of dependence on nicotine. She is a smoker. She drinks alcohol every night. No illicit drug use. SOCIAL HISTORY: The patient lives in a board and care. MENTAL STATUS EXAMINATION: The patient is alert and oriented x3. Mood is dysphoric. Affect is constricted. Congruent mood. Thought process is linear and thought content, no suicidal or homicidal ideation. Insight and judgment is fair. ASSESSMENT: [place] I Major depressive disorder. [place] II Deferred. [place] III As above. [place] IV Moderate. [place] V Global assessment of functioning is 50. PLAN: 1. The patient will be discharged with followup with primary psychiatrist. She does not meet the criteria for 5150 hold or admission for psychiatric hospitalization. She will be continued on her current medications. 2. Encouraged her to therapy. Ashlyn Butcher M.D. DR: ASIA JOB#: [id number] CC:
[2016-11-23 11:49] VITALS: BP 108/82
--- NOTE | 2016-11-23 14:59 | Pulmonology Progress Note ---
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 Butcher Constitutional: Reports: no symptoms HEENT: Repors: no symptoms Respiratory: Reports: no symptoms Allergies: Coded Allergies: SULFA (SULFONAMIDE ANTIBIOTICS) (Verified Allergy, Mild, Hives, 04/20/13) Uncoded Allergies: FISH (Allergy, Severe, Swelling of throat, lips and hives, 11/17/16) Objective Last 24 Hour Vital Signs Date Time Temp Pulse Resp B/P Pulse Ox O2 Delivery O2 Flow Rate FiO2 11/23/16 11:49 97.7 109 21 108/82 97 Room Air 11/23/16 09:30 106 151/97 11/23/16 07:57 97.7 106 21 151/97 95 Room Air 11/23/16 04:00 97.9 105 18 142/76 100 Room Air 11/23/16 00:34 100.0 11/23/16 00:00 100.6 110 18 112/81 96 Room Air 11/22/16 22:05 104 147/98 11/22/16 19:00 97.5 104 18 147/98 98 Room Air 11/22/16 16:00 98.2 109 18 122/102 97 Room Air Intake and Output 11/22/16 11/23/16 19:00 07:00 Intake Total 785 ml 1155 ml Output Total 600 ml Balance 185 ml 1155 ml Intake Oral 560 ml 480 ml IV Total 225 ml 675 ml Output Urine Total 600 ml # Voids 8 # Bowel Movements 1 General Appearance: WD/WN HEENT: normocephalic Respiratory/Chest: chest wall non-tender, lungs clear Cardiovascular: normal peripheral pulses, normal rate Abdomen: normal bowel sounds, soft, non tender Skin: no rash 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, alert Laboratory Tests 11/23/16 06:45: Sodium Level 138, Potassium Level 3.9, Chloride Level 99, Carbon Dioxide Level 23, Anion Gap 16H, Blood Urea Nitrogen 16, Creatinine 0.7, Estimat Glomerular Filtration Rate > 60, Glucose Level 109H, Calcium Level 9.0 Current Medications Medications (Trade) Dose Ordered Sig/Luz Route PRN Reason Start Time Stop Time Status Last Admin Dose Admin Acetaminophen/ Codeine Phosphate (Tylenol #4) 1 ea Q6H PRN ORAL For Pain 11/21/16 00:27 11/28/16 00:26 11/23/16 09:38 Allopurinol (Zyloprim) 100 mg BID ORAL 11/21/16 09:00 12/21/16 08:59 11/23/16 09:31 Bisacodyl (Dulcolax) 10 mg DAILYPRN PRN RECTAL Constipation 11/21/16 07:45 12/21/16 07:44 Bumetanide (Bumex) 2 mg DAILY ORAL 11/21/16 09:00 12/21/16 08:59 11/23/16 09:31 Dextrose (Dextrose 50%) STAT PRN IV Hypoglycemia 11/21/16 07:45 12/21/16 07:44 Dextrose/ Electrolytes (D5 0.45%NS W/ KCl 20mEq) 1,000 ml @ 75 mls/hr [id number] IV 11/20/16 23:00 12/20/16 22:59 11/22/16 19:02 Duloxetine HCl (Cymbalta) 60 mg BID ORAL 11/21/16 09:00 12/21/16 08:59 11/23/16 09:30 Ferrous Sulfate (Feosol) 325 mg BID ORAL 11/21/16 09:00 12/21/16 08:59 11/23/16 09:28 Folic Acid (Folate) 1 mg DAILY ORAL 11/21/16 09:00 12/21/16 08:59 11/23/16 09:30 Gabapentin (Neurontin) 100 mg THREE TIMES A DAY ORAL 11/21/16 09:00 12/21/16 08:59 11/23/16 11:37 Gabapentin (Neurontin) 400 mg THREE TIMES A DAY ORAL 11/21/16 09:00 12/21/16 08:59 11/23/16 09:29 Heparin Sodium (Porcine) (Heparin 5000 units/ml) 5,000 units EVERY 12 HOURS SUBQ 11/21/16 09:00 12/21/16 08:59 11/23/16 09:34 Lidocaine (Lidoderm 5% PATCH) 1 patch DAILY PRN TDERMAL For Pain 11/21/16 09:00 12/21/16 08:59 Metoprolol Tartrate (Lopressor) 25 mg Q12HR ORAL 11/21/16 09:00 12/21/16 08:59 11/23/16 09:30 Pantoprazole (Protonix) 40 mg EVERY 12 HOURS ORAL 11/21/16 09:00 12/21/16 08:59 11/23/16 09:31 Prochlorperazine (Compazine) 10 mg BID PRN ORAL Nausea & Vomiting 11/21/16 09:00 12/21/16 08:59 11/21/16 08:21 Quetiapine Fumarate (SEROquel) 25 mg QHS ORAL 11/21/16 21:00 12/21/16 20:59 11/22/16 22:04 Temazepam (Restoril) 7.5 mg QHS PRN ORAL Insomnia 11/21/16 00:26 11/28/16 00:25 11/23/16 00:22 Thiamine HCl (Vitamin B1) 100 mg DAILY ORAL 11/21/16 09:00 12/21/16 08:59 11/23/16 09:31 GÓMEZ VALDIVIA Nov 23, 2016 14:59
[2016-11-23 16:00] VITALS: BP 122/78
--- NOTE | 2016-11-23 16:24 | Discharge Summary ---
Discharge Summary Hospital Course Date of Admission Nov 16, 2016 at 22:53 Date of Discharge Admitting Diagnosis substance abuse(OD) HPI Nakia Ruiz is a 66 year old female who was admitted on Nov 16, 2016 at 22: 53 for Substance Abuse,Overdose Hospital Course Dictated for Int Med-Dr Parker no. [id number]. Discharge Discharge Disposition Patient was discharged to [facility] (04) Discharge Diagnoses: DRAKE CASAREZ Nov 23, 2016 16:24
[2016-11-23] MEDS: D5 1/2NS w/KCl 20mEq 1,000 ML IV SCH (17:40)
--- NOTE | 2016-11-24 11:28 | Discharge Summary ---
DATE OF ADMISSION: 11/16/2016 DATE OF DISCHARGE: 11/23/2016 ADMITTING DIAGNOSES: 1. Confusion. 2. Opiate overdose. 3. Hypertension. 4. Hypercholesterolemia. 5. Osteoarthritis of right knee. 6. History of ovarian cancer. DISCHARGE DIAGNOSES: 1. Metabolic encephalopathy. 2. Confusion. 3. Opiate overdose. 4. Hypertension. 5. Hypercholesterolemia. 6. Osteoarthritis or right knee. 7. History of ovarian cancer. 8. Major depression. HOSPITAL COURSE BY PROBLEM LIST: 1. Metabolic encephalopathy. This is probably secondary to opiate overdose. The patient received Narcan in the field. Metabolic encephalopathy has resolved during the hospitalization. 2. Opiate overdose as above. The patient received Narcan in the field. The patient unintentionally this is thought to be unintentional secondary to chronic pain. The patient received Narcan in the field. The patient was evaluated by Psychiatry. The patient was not placed on a 5150 hold at this time. The patient to was follow up with as an outpatient. 3. Hypertension. The patient remained on Bumex 2 mg one tablet p.o. daily. Blood pressure is well controlled during the hospitalization. 4. Hypercholesterolemia. The patient remained on Lipitor 10 mg one tablet p.o. daily. The patient to follow up with her primary care physician in one week. 5. Osteoarthritis of the right knee. 6. History of ovarian cancer. 7. Major depression. The patient remained on Seroquel 25 mg one tablet p.o. nightly and Cymbalta 60 mg one tablet p.o. twice daily. The patient was evaluated by DrCarlos during the hospitalization. The patient was not placed on a 5150 hold by . The patient to follow up with as an outpatient. DISCHARGE MEDICATIONS: Please refer to discharge medication list. DISCHARGE INSTRUCTIONS: The patient is discharged to [facility] today on 11/23/2016. Julito Schilling M.D. DR: TAN JOB#: [id number] CC:
--- NOTE | 2016-12-25 11:41 | Diagnostic Imaging Report ---
Indications: Cough Technique: Portable AP chest Findings: Comparison: None Apparent one cm nodular density overlies right lung base. 2 cm nodular density overlies lower lateral right chest wall soft tissues. This corresponds to the site of one of several adjacent cysts old, healed right rib fractures. Linear density left lung base. Heart size, pulmonary vasculature within normal limits. No pleural abnormality. Moderate dextroscoliosis. IMPRESSION: Left lung base nodule may represent summation artifact of overlying ribs. Lung nodule not excludable. Contrast-enhanced CT scan the thorax recommended for further evaluation if persists on short interval followup radiograph. Separate right lateral chest wall nodule likely nipple shadow multiple old, healed right rib fractures including in region of the aforementioned nodule Subsegmental atelectasis versus scarring left lung base Scoliosis
== END 2016-11-23 19:38 | DRG 917 ==
LOC: ENRESERVDT → ENRESERVTM → EDBD 20:30 → EMR 22:50 → 2E 22:53 → EDBEDREQ 11-17 00:23 → 4E 11-20 23:23
DX: T40.602A Poisoning by unspecified narcotics, intentional self-harm, initial encounter (principal); J96.02 Acute respiratory failure with hypercapnia; G92 Toxic encephalopathy; F11.20 Opioid dependence, uncomplicated; C56.9 Malignant neoplasm of unspecified ovary; K21.9 Gastro-esophageal reflux disease without esophagitis; F32.9 Major depressive disorder, single episode, unspecified; G89.4 Chronic pain syndrome; I10 Essential (primary) hypertension; E78.5 Hyperlipidemia, unspecified; E83.42 Hypomagnesemia; N80.9 Endometriosis, unspecified; F10.10 Alcohol abuse, uncomplicated; Z23 Encounter for immunization; E78.00 Pure hypercholesterolemia, unspecified; R91.1 Solitary pulmonary nodule; M17.11 Unilateral primary osteoarthritis, right knee; Y92.199 Unspecified place in other specified residential institution as the place of occurrence of the external cause
CPT/HCPCS: 36415; 36600; 71010; 71260; 80048; 80053; 80300; 80329; 81003; 82550; 82803; 83735; 84100; 84484; 85007; 85025; 86304; 87081; 90732; 93005; J2310; J8499